=== PATIENT | male | born 1970 | race Caucasian/White ===

== ENCOUNTER → 2020-09-18 08:43 | Outpatient (BNVA) | payer MEDICAID, SELFPAY | PROVIDERS: Visit Provider Internal Medicine Gastroenterology | DX: Z76.89 Persons encountering health services in other specified circumstances (principal) ==

== ENCOUNTER 2020-10-03 07:31 | Outpatient (REF) | payer MEDICAID, SELFPAY ==
--- NOTE | 2020-10-03 07:57 | US_ITS ---
EXAMINATION: US ABDOMEN LIMITED CLINICAL INFORMATION: Cirrhosis of liver. COMPARISON: None. TECHNIQUE: Real-time imaging of the right upper quadrant abdominal viscera. FINDINGS: PANCREAS: The body of the pancreas partially visualized is unremarkable. The head and the tail of the pancreas are not seen well. LIVER: The liver is coarse echogenic with scalloped borders. No focal lesions seen. There is no intrahepatic biliary duct dilatation seen. GALLBLADDER: The gallbladder is contracted with no focal lesion seen. COMMON BILE DUCT: Normal in caliber measuring 0.2 cm in diameter. RIGHT KIDNEY: Normal. No hydronephrosis. No renal calculi or focal parenchymal lesions. The kidney measures 12.7 cm in maximum dimension. FREE FLUID: None. US/US abdomen limited IMPRESSION: Coarse echogenic liver with scalloped margins but no focal lesion or intrahepatic liver ductal dilatation. Contracted gallbladder.
[2020-10-03 08:16] LABS: MANUAL DIFF FLAG SCAN; SCAN SMEAR FLAG 1
[2020-10-03 08:17] LABS: Basophils Percent Auto 0.3 % (0-2); Eosinophils Absolute Auto 0.4 X10*3/uL (0.0-0.4); Eosinophils Percent Auto 6.5 % (0-4); Hematocrit 42.1 % (42-52); Hemoglobin 14.4 g/dl (14.0-18.0); Imm Gran Abs Auto 0.01 X10*3/uL (0.00-0.03); Imm Gran Pct Auto 0.2 % (0.0-0.4); Lymphocytes Percent Auto 34.3 % (20-40); Mean Corpuscular HGB Conc 34.2 g/dl (31.0-36.0); Mean Corpuscular Hemoglobin 30.6 pg (27.0-33.0); Mean Corpuscular Volume 89.6 fL (80-98); Monocytes Absolute Auto 0.4 X10*3/uL (0.1-1.2); Monocytes Percent Auto 6.8 % (2-11); Neutrophils Absolute Auto 3.1 X10*3/uL (2.0-8.3); Neutrophils Percent Auto 51.9 % (45-73); Red Cell Distribution Width 12.9 % (11.0-16.0); White Blood Count 5.9 X10*3/uL (4.8-10.8)
[2020-10-03 08:20] LABS: PLT ABN DIST 1; Platelet Count 57 X10*3/uL (160-400)
[2020-10-03 08:55] LABS: INTERNATIONAL NORM RATIO 1.2 (0.9-1.1); Prothrombin Time 14.4 SEC (10.8-13.0)
[2020-10-03 09:10] LABS: Alanine Aminotransferase 37 U/L (0-40); Albumin Level 3.2 g/dL (3.5-5.0); Alkaline Phosphatase 166 U/L (39-117); Anion Gap 10 (12-20); Aspartate Amino Transferase 48 U/L (5-37); Bilirubin Direct 0.4 mg/dL (0.0-0.5); Bilirubin Total 0.7 mg/dL (0.0-1.0); Blood Urea Nitrogen 11 mg/dL (9-16); Calcium 8.3 mg/dL (8.4-10.2); Carbon Dioxide 28 mmol/L (22-29); Chloride 103 mmol/L (96-108); Estimated Glomerular Filt Rate > 60; Potassium 3.8 mmol/l (3.3-5.1); Sodium 137 mmol/L (135-145); Total Protein 7.1 g/dL (6.5-8.0)
[2020-10-03 09:12] LABS: Glucose Random 421 mg/dL (60-115)
== END 2020-10-03 07:32 | disposition home or self-care (01) ==
LOC: HO.US 07:31
PROVIDERS: Visit Provider Internal Medicine Gastroenterology
DX: K74.60 Unspecified cirrhosis of liver (principal)
CPT/HCPCS: 36415; 76705; 80048; 80076; 85025; 85610

== ENCOUNTER 2021-01-16 13:28 | Outpatient (REF) | payer MEDICAID, SELFPAY ==
--- NOTE | ~2021-01-16 | XR_ITS ---
EXAMINATION: XR CHEST CLINICAL INFORMATION: Cough COMPARISON: Previous chest x-ray most recent September 2019 TECHNIQUE: 2 views of the chest were obtained. FINDINGS: The cardiac and mediastinal contours are normal in the lungs are clear. There is no pleural effusion or pneumothorax. There are mild degenerative changes of the spine. XR/XR chest 2V IMPRESSION: No evidence for acute disease in the chest.
== END 2021-01-16 13:29 | disposition home or self-care (01) ==
LOC: HO.XRAY 13:28
PROVIDERS: PCP Internal Medicine; Visit Provider Internal Medicine
DX: R05 Cough (principal)
CPT/HCPCS: 71046

== ENCOUNTER 2021-03-23 09:22 | Inpatient (IN) | payer MEDICAID, SELFPAY ==
--- NOTE | ~2021-03-23 | US_ITS ---
EXAMINATION: US ABDOMEN COMPLETE CLINICAL INFORMATION: Cirrhosis. Abdominal pain. Elevated liver function tests.. COMPARISON: Previous abdominal ultrasound most recent September [address] January 2019 TECHNIQUE: Real-time imaging of the abdominal viscera. FINDINGS: PANCREAS: Head and body the pancreas are normal. The tail is not well visualized due to bowel gas. ABDOMINAL AORTA: The proximal, mid, and distal segments are normal in caliber. INFERIOR VENA CAVA: Visualized portions are normal. LIVER: The liver is cirrhotic. No focal liver lesion is seen. There is thrombus seen in the main portal vein. There is reversed flow seen in the splenic vein and portal splenic confluence. There is no biliary duct dilatation. GALLBLADDER: The gallbladder is normal in size. There is gallbladder wall thickening and edema. The gallbladder wall measures up to 1.2 cm. This may be related to liver disease. No gallstones are seen. COMMON BILE DUCT: Normal in caliber measuring 0.4 cm in diameter. RIGHT KIDNEY: The right kidney is enlarged and measures 13.4 cm in length. There is question of renal cortical thickening. There is mild fullness of the renal pelvis. No stone or mass is seen. LEFT KIDNEY: The left kidney is enlarged and measures 14.1 cm in length. There is question of renal cortical thickening. There is mild fullness of the renal pelvis. No stone or mass is seen. SPLEEN: The spleen is enlarged. The spleen measures 14.5 cm in maximum dimension. There are varices seen in the splenic hilum. FREE FLUID: There is a small amount of ascites. US/US abdomen complete IMPRESSION: Cirrhotic appearing liver with near occlusive thrombus in the main portal vein and reversed flow in the splenic vein and portal splenic confluence. Splenomegaly. Small amount of ascites. Gallbladder wall thickening and edema. This may be related to liver disease. Enlarged kidneys with question of renal cortical thickening.
--- NOTE | ~2021-03-23 | CT_ITS ---
EXAMINATION: CT ABDOMEN AND PELVIS WITH CONTRAST CLINICAL INFORMATION: Abdominal pain. Cirrhosis. Portal vein thrombus seen on ultrasound. COMPARISON: Previous abdominal ultrasound earlier the same day CT most recent January 2019 TECHNIQUE: Multidetector volumetric images were obtained from the superior aspect of the liver through the pubic symphysis following administration 85 mL of Omnipaque 350 intravenous contrast. Sagittal and coronal reformatted images were obtained on the technologist's workstation. Oral contrast: Yes This CT examination was performed using dose optimization techniques as appropriate, variously including the following: *Automated exposure control *Adjustment of mA and/or kV according to patient size (this includes techniques or standardized protocols for targeted exams where dose is matched to indication/reason for exam; i.e. extremities or head) *Use of iterative reconstruction technique DLP: 582 mGy-cm FINDINGS: LUNG BASES: There is atelectasis at the lung bases. LIVER, GALLBLADDER, AND BILIARY TREE: The liver appears cirrhotic. There is no focal liver lesion. There is no biliary duct dilatation. The main and right left portal veins appear patent by CT. There are multiple varices. There is a small amount of ascites. The gallbladder is normal in size. There is focal gallbladder wall thickening. This may be related to liver disease. PANCREAS: Unremarkable. SPLEEN: The spleen is enlarged. ADRENAL GLANDS: Unremarkable. KIDNEYS AND URETERS: The kidneys are normal in size, shape, and attenuation. No hydronephrosis, hydroureter, or calculi seen. No perinephric stranding. BLADDER: Unremarkable. GASTROINTESTINAL TRACT: There are surgical changes with surgical staple line seen in the distal left or proximal sigmoid colon. There is stool throughout the colon suggestive of severe constipation. Small and large bowel is otherwise unremarkable. The appendix is not seen.. ABDOMINAL WALL: No significant hernia is appreciated. LYMPH NODES: Normal. VASCULAR: There are multiple varices. PELVIC VISCERA: Unremarkable. OSSEOUS STRUCTURES: There are degenerative changes of the spine. CT/CT abdomen pelvis w con IMPRESSION: Cirrhosis, splenomegaly, varices and small amount of ascites. The main and right and left portal veins appear patent CT scan. Stool throughout the colon suggestive of severe constipation. There are postsurgical changes to the distal left or proximal sigmoid colon. Thickened gallbladder wall. This may be related to liver disease.
--- NOTE | ~2021-03-23 | XR_ITS ---
EXAMINATION: XR CHEST CLINICAL INFORMATION: Shortness of breath COMPARISON: Previous chest x-ray December 2020 TECHNIQUE: Frontal view of the chest was obtained. FINDINGS: The cardiac silhouette is upper normal in size. There are prominent central bronchovascular markings. These changes may be related to apical lordotic film technique. The lungs are otherwise clear. There is no pleural effusion or pneumothorax. There are degenerative changes of the spine. XR/XR chest 1V IMPRESSION: Prominent central bronchovascular markings. These changes may be related to a volar apical lordotic film technique. Differential would include bronchitis and mild pulmonary venous redistribution. Clinical correlation recommended.
[2021-03-23 09:26] VITALS: BP 145/68; PULSE 83; RESP 20; TEMP 36.9; O2SAT 96; BMI 29.5
--- NOTE | 2021-03-23 11:05 | ECG_ITS ---
Test Reason : ABD PAIN Blood Pressure : / mmHG Vent. Rate : 080 BPM Atrial Rate : 080 BPM P-R Int : 170 ms QRS Dur : 118 ms QT Int : 416 ms P-R-T Axes : 039 017 053 degrees QTc Int : 479 ms Normal sinus rhythm Possible Left atrial enlargement Incomplete right bundle branch block Borderline ECG When compared with ECG of 06-OCT-2019 09:41, Incomplete right bundle branch block is now Present Referred By: Ashley Lam Electronically Signed By:FRANCI LAUGHLIN MD
[2021-03-23 11:39] LABS: Basophils Percent Auto 0.1 % (0-2); Hemoglobin 10.5 g/dl (14.0-18.0); MANUAL DIFF FLAG SCAN; Mean Corpuscular Hemoglobin 32.1 pg (27.0-33.0); Red Blood Count 3.27 X10*6/uL (4.60-5.80); SCAN SMEAR FLAG 1
[2021-03-23 11:41] LABS: Eosinophils Absolute Auto 0.1 X10*3/uL (0.0-0.4); Eosinophils Percent Auto 1.4 % (0-4); Hematocrit 31.8 % (42-52); Imm Gran Abs Auto 0.27 X10*3/uL (0.00-0.03); Imm Gran Pct Auto 3.8 % (0.0-0.4); Lymphocytes Absolute Auto 0.8 X10*3/uL (1.2-4.9); Lymphocytes Percent Auto 11.9 % (20-40); Mean Corpuscular Volume 97.2 fL (80-98); Monocytes Absolute Auto 0.2 X10*3/uL (0.1-1.2); Monocytes Percent Auto 3.2 % (2-11); Neutrophils Absolute Auto 5.6 X10*3/uL (2.0-8.3); Neutrophils Percent Auto 79.6 % (45-73); White Blood Count 7.1 X10*3/uL (4.8-10.8)
[2021-03-23 11:42] LABS: PLT ABN DIST 1; Platelet Count 97 X10*3/uL (160-400)
--- NOTE | 2021-03-23 11:44 | ED.GENADULT ---
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 He denies history of CHF or being on any diuretics. He denies trauma and states both legs swelled at the same time and have been constant x2 weeks. He went to [facility] ER and they told him to elevate his legs, no improvement with this. He admits to intermittent SOB and chest discomfort. He reports liver pain and LLQ pain that come and go for 2 weeks as well. No nausea or vomiting. No fever, chills, or urinary symptoms. MD complaint: LE swelling, abdominal pain Onset (ago): week(s) (2) Location: chest, abdomen, left, right and lower extremity Radiation: non-radiation Severity: moderate Severity scale (1-10): 7 Quality: aching Pain Consistency: intermittent Relieving factors: none Associated symptoms: chest pain and shortness of breath Treatments prior to arrival: none Related Data Home Medications Medication Instructions Recorded Confirmed blood sugar diagnostic #10 ea 06/24/20 06/24/20 blood-glucose meter #1 ea 06/24/20 06/24/20 insulin glargine 100 unit/mL (3 12 unit SUBCUT QPM 06/24/20 03/23/21 mL) subcutaneous pen insulin lispro 100 unit/mL See Protocol SUBCUT TID ml 06/24/20 03/23/21 subcutaneous pen lancets 28 gauge #100 ea 06/24/20 06/24/20 metformin 500 mg tablet 500 mg PO BID 06/24/20 03/23/21 aripiprazole 1 tab PO DAILY 03/23/21 03/23/21 atorvastatin 1 tab PO BEDTIME 03/23/21 03/23/21 cephalexin 1 cap PO TID 03/23/21 03/23/21 doxepin 2 cap PO BEDTIME 03/23/21 03/23/21 propranolol 1 cap PO DAILY 03/23/21 03/23/21 Previous Rx's Medication Instructions Recorded pantoprazole 40 mg tablet,delayed 40 mg PO DAILY #60 tab 09/18/20 release Allergies Allergy/AdvReac Type Severity Reaction Status Date / Time No Known Allergies Allergy Unverified 06/08/20 19:10 [No Known Allergies*] Review of Systems Review of Systems: Constitutional: No Fever, No Chills ENT/Mouth: No sore throat, No Rhinorrhea, No Swallowing Difficulty Eyes: No Eye Pain, No Swelling, No Redness Cardiovascular: + Chest Pain, + SOB, No Orthopnea, + Edema Respiratory: No Cough, No Sputum, No Wheezing, No dyspnea Gastrointestinal: No Nausea, No Vomiting, + Diarrhea, + abdominal Pain, No Hematochezia, No Melena Genitourinary: No Dysuria, No Urinary Frequency, No Hematuria Musculoskeletal: No joint pain, No Myalgias Skin: No Skin Lesions, No rash Neuro: No Weakness, No Numbness, No Dizziness, No Headache Psych: No Anxiety/Panic, No Depression Heme/Lymph: No Bruising, No Lymphadenopathy Endocrine: No Polyuria, No Polydipsia [facility] Past Medical History Attestation statement: The following information was validated with the patient. Medical History Diabetes High cholesterol HTN (hypertension) Surgical History (Updated 09/18/20 @ 08:47 by Henny Cardoza CMA) History of colonoscopy History of partial colectomy Hx of endoscopy Family History Family History (Updated 09/18/20 @ 08:47 by Henny Cardoza CMA) Mother Heart disease Diabetes Father No problems noted. Social History Social History (Updated 09/18/20 @ 08:48 by Henny Cardoza CMA) Alcohol intake: never Substance Use Type: Crack/Cocaine and Marijuana Advance Directives: Yes Advance Directives Information Provided: Yes Advance Directives on File: No Physical Exam Vital Signs: Vital Signs: Last Vital Signs Temp 98.4 F 03/23/21 09:26 Pulse 90 03/23/21 13:46 Resp 18 03/23/21 13:46 BP 145/68 H 03/23/21 09:26 Pulse Ox 96 03/23/21 09:26 Body Mass Index 29.5 Appearance: Alert. Oriented X3. No acute distress. Eyes: Pupils equal, round and reactive to light. ENT: Pharynx normal. Neck: Normal inspection. Neck supple. CVS: Normal heart rate and rhythm. Pulses normal. Respiratory: No respiratory distress. Breath sounds normal. Abdomen: Soft with RUQ and LLQ tenderness, + guarding. +BS x4 Skin: Skin warm and dry. Normal skin color. Normal skin turgor. No rashes. Extremities: 2+ lower extremity edema. Neuro: Oriented X 3. No motor deficit. No sensory deficit. Course Course Course Narrative: 50 y/o male with HTN, HLD, DM and liver cirrhosis (?ROSA) presenting with multiple medical complaints including new LE edema, abdominal pain, SOB and chest pains. Will get EKG, CXR, gull metabolic workup. Reevaluation(s) Reevaluation #1: Albumin is 1.5. BNP 350. New anemia with H/H 10.5/31.8 from 14.4/42.1. six months ago. His thrombocytopenia is improved to 97K from 57K. LFTs trended up from baseline. Abd U/S ordered for further evaluation of increase in LFTs and RUQ pain. Ordered for IV lasix, albumin for fluid overload as well as SC insulin for glucose 380. Reevaluation #2: RUQ U/S showing thrombosis with near occlusion of main portal vein. Case d/w Dr Lopez from GI - recommending CT scan to r/o liver mass as well as AFP. Recommending anticoagluation for PVT and close monitoring of H/H given his new anemia. No signs/symptoms of GI bleeding. Reevaluation #3: CT scan : Cirrhosis, splenomegaly, varices and small amount of ascites. The main and right and left portal veins appear patent CT scan. Stool throughout the colon suggestive of severe constipation. There are postsurgical changes to the distal left or proximal sigmoid colon. Thickened gallbladder wall. This may be related to liver disease. U/S w/ doppler more reliable for PVT. Will plan to start heparin gtt and monitor CBC closely for worsening anemia and thrombocytopenia. Stool occult blood is negative. Spoke with Dr. Traylor for admission. Consultations Consultation #1: GI - Dr. Lopez Medical Decision Making Lab Data Result diagrams: 03/23/21 11:24 03/23/21 11:24 Labs: Lab Results 03/23/21 03/23/21 03/23/21 Range/Units 11:24 11:24 11:24 WBC 7.1 (4.8-10.8) X10*3/uL RBC 3.27 L D (4.60-5.80) X10*6/uL Hgb 10.5 L D (14.0-18.0) g/dl Hct 31.8 L D (42-52) % MCV 97.2 (80-98) fL MCH 32.1 (27.0-33.0) pg MCHC 33.0 (31.0-36.0) g/dl RDW 17.0 H (11.0-16.0) % Plt Count 97 L D (160-400) X10*3/uL MPV 13.0 H (9.4-12.4) fL Immature Gran % (Auto) 3.8 H (0.0-0.4) % Neut % (Auto) 79.6 H (45-73) % Lymph % (Auto) 11.9 L (20-40) % [place] % (Auto) 3.2 (2-11) % Eos % (Auto) 1.4 (0-4) % Baso % (Auto) 0.1 (0-2) % Lymph # (Auto) 0.8 L (1.2-4.9) X10*3/uL [place] # (Auto) 0.2 (0.1-1.2) X10*3/uL Eos # (Auto) 0.1 (0.0-0.4) X10*3/uL Baso # (Auto) 0.0 (0.0-0.2) X10*3/uL Abs Immat Gran (auto) 0.27 H (0.00-0.03) X10*3/uL Absolute Neuts (auto) 5.6 (2.0-8.3) X10*3/uL Absolute Nucleated RBC 0.000 (0.0-0.012) X10*3/uL Nucleated RBC % (auto) 0.0 (0.0-0.2) /100WBC Smear Tech's Comments Not Reportable PT (9.9-13.0) SEC INR (0.9-1.1) APTT (24.1-38.0) SEC Hold Blue Top SEE NOTE Sodium 133 L (135-145) mmol/L Potassium 4.4 (3.3-5.1) mmol/L Chloride 103 (96-108) mmol/L Carbon Dioxide 29 (22-29) mmol/L Anion Gap 5 L (12-20) BUN 8 L (9-16) mg/dL Creatinine 0.82 (0.5-1.4) mg/dL Estim Creat Clear Calc 119.9 Estimated GFR > 60 POC Glucose (60-115) mg/dL Random Glucose 386 H* (60-115) mg/dL Lactic Acid (0.5-2.0) mmol/L Calcium 7.4 L D (8.4-10.2) mg/dL Magnesium 1.6 (1.6-2.6) mg/dL Total Bilirubin 1.3 H (0.0-1.0) mg/dL Direct Bilirubin 0.9 H (0.0-0.5) mg/dL AST 59 H (5-37) U/L ALT 32 (0-40) U/L Alkaline Phosphatase 310 H D (39-117) U/L Troponin I High Sens (<3.5-35.0) ng/L B-Natriuretic Peptide (<100) pg/mL Total Protein 8.1 H (6.5-8.0) g/dL Albumin 1.5 L D (3.5-5.0) g/dL Lipase 84 H (8-78) U/L Urine Color Urine Appearance Urine pH (5.0-8.0) Ur Specific [place] (1.005-1.025) Urine Protein (NEG-TRACE) MG/DL Urine Glucose (UA) (NEG) MG/DL Urine Ketones (NEG) MG/DL Urine Blood (NEG) Urine Nitrite (NEG) Ur Leukocyte Esterase (NEG) Urine RBC (0) /HPF Urine WBC (0-4) /HPF Ur Squamous Epith Cells /LPF Urine Bacteria /LPF Urine Mucus /LPF Stool Occult Blood (NEGATIVE) COVID-19 (NEY) (Negative) COVID-19 Clin Com 03/23/21 03/23/21 03/23/21 Range/Units 11:24 12:39 14:57 WBC (4.8-10.8) X10*3/uL RBC (4.60-5.80) X10*6/uL Hgb (14.0-18.0) g/dl Hct (42-52) % MCV (80-98) fL MCH (27.0-33.0) pg MCHC (31.0-36.0) g/dl RDW (11.0-16.0) % Plt Count (160-400) X10*3/uL MPV (9.4-12.4) fL Immature Gran % (Auto) (0.0-0.4) % Neut % (Auto) (45-73) % Lymph % (Auto) (20-40) % [place] % (Auto) (2-11) % Eos % (Auto) (0-4) % Baso % (Auto) (0-2) % Lymph # (Auto) (1.2-4.9) X10*3/uL [place] # (Auto) (0.1-1.2) X10*3/uL Eos # (Auto) (0.0-0.4) X10*3/uL Baso # (Auto) (0.0-0.2) X10*3/uL Abs Immat Gran (auto) (0.00-0.03) X10*3/uL Absolute Neuts (auto) (2.0-8.3) X10*3/uL Absolute Nucleated RBC (0.0-0.012) X10*3/uL Nucleated RBC % (auto) (0.0-0.2) /100WBC Smear Tech's Comments PT (9.9-13.0) SEC INR (0.9-1.1) APTT (24.1-38.0) SEC Hold Blue Top Sodium (135-145) mmol/L Potassium (3.3-5.1) mmol/L Chloride (96-108) mmol/L Carbon Dioxide (22-29) mmol/L Anion Gap (12-20) BUN (9-16) mg/dL Creatinine (0.5-1.4) mg/dL Estim Creat Clear Calc Estimated GFR POC Glucose 171 H (60-115) mg/dL Random Glucose (60-115) mg/dL Lactic Acid (0.5-2.0) mmol/L Calcium (8.4-10.2) mg/dL Magnesium (1.6-2.6) mg/dL Total Bilirubin (0.0-1.0) mg/dL Direct Bilirubin (0.0-0.5) mg/dL AST (5-37) U/L ALT (0-40) U/L Alkaline Phosphatase (39-117) U/L Troponin I High Sens < 3.5 (<3.5-35.0) ng/L B-Natriuretic Peptide 356 H (<100) pg/mL Total Protein (6.5-8.0) g/dL Albumin (3.5-5.0) g/dL Lipase (8-78) U/L Urine Color YELLOW Urine Appearance CLEAR Urine pH 6.5 (5.0-8.0) Ur Specific [place] 1.025 (1.005-1.025) Urine Protein TRACE (NEG-TRACE) MG/DL Urine Glucose (UA) >=1000 H (NEG) MG/DL Urine Ketones NEG (NEG) MG/DL Urine Blood NEG (NEG) Urine Nitrite NEG (NEG) Ur Leukocyte Esterase NEG (NEG) Urine RBC 0-2 (0) /HPF Urine WBC 0 (0-4) /HPF Ur Squamous Epith Cells 1+ /LPF Urine Bacteria NONE /LPF Urine Mucus 1+ /LPF Stool Occult Blood (NEGATIVE) COVID-19 (NEY) (Negative) COVID-19 Clin Com 03/23/21 03/23/21 03/23/21 Range/Units 15:54 15:54 15:54 WBC (4.8-10.8) X10*3/uL RBC (4.60-5.80) X10*6/uL Hgb (14.0-18.0) g/dl Hct (42-52) % MCV (80-98) fL MCH (27.0-33.0) pg MCHC (31.0-36.0) g/dl RDW (11.0-16.0) % Plt Count (160-400) X10*3/uL MPV (9.4-12.4) fL Immature Gran % (Auto) (0.0-0.4) % Neut % (Auto) (45-73) % Lymph % (Auto) (20-40) % [place] % (Auto) (2-11) % Eos % (Auto) (0-4) % Baso % (Auto) (0-2) % Lymph # (Auto) (1.2-4.9) X10*3/uL [place] # (Auto) (0.1-1.2) X10*3/uL Eos # (Auto) (0.0-0.4) X10*3/uL Baso # (Auto) (0.0-0.2) X10*3/uL Abs Immat Gran (auto) (0.00-0.03) X10*3/uL Absolute Neuts (auto) (2.0-8.3) X10*3/uL Absolute Nucleated RBC (0.0-0.012) X10*3/uL Nucleated RBC % (auto) (0.0-0.2) /100WBC Smear Tech's Comments PT 17.0 H (9.9-13.0) SEC INR 1.5 H (0.9-1.1) APTT 36.7 (24.1-38.0) SEC Hold Blue Top Sodium (135-145) mmol/L Potassium (3.3-5.1) mmol/L Chloride (96-108) mmol/L Carbon Dioxide (22-29) mmol/L Anion Gap (12-20) BUN (9-16) mg/dL Creatinine (0.5-1.4) mg/dL Estim Creat Clear Calc Estimated GFR POC Glucose (60-115) mg/dL Random Glucose (60-115) mg/dL Lactic Acid 1.1 (0.5-2.0) mmol/L Calcium (8.4-10.2) mg/dL Magnesium (1.6-2.6) mg/dL Total Bilirubin (0.0-1.0) mg/dL Direct Bilirubin (0.0-0.5) mg/dL AST (5-37) U/L ALT (0-40) U/L Alkaline Phosphatase (39-117) U/L Troponin I High Sens (<3.5-35.0) ng/L B-Natriuretic Peptide (<100) pg/mL Total Protein (6.5-8.0) g/dL Albumin (3.5-5.0) g/dL Lipase (8-78) U/L Urine Color Urine Appearance Urine pH (5.0-8.0) Ur Specific [place] (1.005-1.025) Urine Protein (NEG-TRACE) MG/DL Urine Glucose (UA) (NEG) MG/DL Urine Ketones (NEG) MG/DL Urine Blood (NEG) Urine Nitrite (NEG) Ur Leukocyte Esterase (NEG) Urine RBC (0) /HPF Urine WBC (0-4) /HPF Ur Squamous Epith Cells /LPF Urine Bacteria /LPF Urine Mucus /LPF Stool Occult Blood (NEGATIVE) COVID-19 (NEY) Negative (Negative) COVID-19 Clin Com See Note 03/23/21 03/23/21 Range/Units 15:55 16:43 WBC (4.8-10.8) X10*3/uL RBC (4.60-5.80) X10*6/uL Hgb (14.0-18.0) g/dl Hct (42-52) % MCV (80-98) fL MCH (27.0-33.0) pg MCHC (31.0-36.0) g/dl RDW (11.0-16.0) % Plt Count (160-400) X10*3/uL MPV (9.4-12.4) fL Immature Gran % (Auto) (0.0-0.4) % Neut % (Auto) (45-73) % Lymph % (Auto) (20-40) % [place] % (Auto) (2-11) % Eos % (Auto) (0-4) % Baso % (Auto) (0-2) % Lymph # (Auto) (1.2-4.9) X10*3/uL [place] # (Auto) (0.1-1.2) X10*3/uL Eos # (Auto) (0.0-0.4) X10*3/uL Baso # (Auto) (0.0-0.2) X10*3/uL Abs Immat Gran (auto) (0.00-0.03) X10*3/uL Absolute Neuts (auto) (2.0-8.3) X10*3/uL Absolute Nucleated RBC (0.0-0.012) X10*3/uL Nucleated RBC % (auto) (0.0-0.2) /100WBC Smear Tech's Comments PT (9.9-13.0) SEC INR (0.9-1.1) APTT (24.1-38.0) SEC Hold Blue Top Sodium (135-145) mmol/L Potassium (3.3-5.1) mmol/L Chloride (96-108) mmol/L Carbon Dioxide (22-29) mmol/L Anion Gap (12-20) BUN (9-16) mg/dL Creatinine (0.5-1.4) mg/dL Estim Creat Clear Calc Estimated GFR POC Glucose 120 H (60-115) mg/dL Random Glucose (60-115) mg/dL Lactic Acid (0.5-2.0) mmol/L Calcium (8.4-10.2) mg/dL Magnesium (1.6-2.6) mg/dL Total Bilirubin (0.0-1.0) mg/dL Direct Bilirubin (0.0-0.5) mg/dL AST (5-37) U/L ALT (0-40) U/L Alkaline Phosphatase (39-117) U/L Troponin I High Sens (<3.5-35.0) ng/L B-Natriuretic Peptide (<100) pg/mL Total Protein (6.5-8.0) g/dL Albumin (3.5-5.0) g/dL Lipase (8-78) U/L Urine Color Urine Appearance Urine pH (5.0-8.0) Ur Specific [place] (1.005-1.025) Urine Protein (NEG-TRACE) MG/DL Urine Glucose (UA) (NEG) MG/DL Urine Ketones (NEG) MG/DL Urine Blood (NEG) Urine Nitrite (NEG) Ur Leukocyte Esterase (NEG) Urine RBC (0) /HPF Urine WBC (0-4) /HPF Ur Squamous Epith Cells /LPF Urine Bacteria /LPF Urine Mucus /LPF Stool Occult Blood NEGATIVE (NEGATIVE) COVID-19 (NEY) (Negative) COVID-19 Clin Com ECG Data Attestation: I personally reviewed and interpreted this ECG as follows: Interpretation: normal sinus rhythm, HR 80 bpm, normal DE interval, increased QRS 118 ms, increased QTc 479 ms, incomplete RBBB Critical Care Time Critical Care Time Critical Care Time: Yes Total Critical Care Time: 42 Attestation: I have personally provided critical care time exclusive of time spent on separately billable procedures. Time includes review of lab data, radiology results, discussion with consultants, and monitoring for potential decompensation. Intervention performed as documented. Discharge Plan Discharge Clinical Impression: Portal vein thrombosis, Hypoalbuminemia Anemia Qualifiers: Anemia type: unspecified type Qualified Code(s): D64.9 - Anemia, unspecified Patient Disposition: Admitted As Inpatient
[2021-03-23 12:05] LABS: Alanine Aminotransferase 32 U/L (0-40); Albumin Level 1.5 g/dL (3.5-5.0); Alkaline Phosphatase 310 U/L (39-117); Anion Gap 5 (12-20); Aspartate Amino Transferase 59 U/L (5-37); B Type Natriuretic Peptide 356 pg/mL (<100); Bilirubin Direct 0.9 mg/dL (0.0-0.5); Bilirubin Total 1.3 mg/dL (0.0-1.0); Blood Urea Nitrogen 8 mg/dL (9-16); Calcium 7.4 mg/dL (8.4-10.2); Carbon Dioxide 29 mmol/L (22-29); Chloride 103 mmol/L (96-108); Creatinine Clr Calc Pharmacy 119.9; Estimated Glomerular Filt Rate > 60; Glucose Random 386 mg/dL (60-115); Magnesium 1.6 mg/dL (1.6-2.6); Potassium 4.4 mmol/L (3.3-5.1); Sodium 133 mmol/L (135-145); Total Protein 8.1 g/dL (6.5-8.0); Troponin-I High Sensitivity < 3.5 ng/L (<3.5-35.0)
[2021-03-23 12:18] LABS: Lipase 84 U/L (8-78)
[2021-03-23] MEDS: Furosemide 20 MG/2 ML VIAL IVPUSH (12:34)
[2021-03-23] MEDS: Albumin Human 25 % 100 ML IV (12:34)
[2021-03-23] MEDS: Insulin Lispro 100 UNIT/ML 3 ML VIAL 8 UNIT SUBCUT (12:34)
[2021-03-23 12:50] LABS: Glucose Urine UA >=1000 MG/DL (NEG); Leukocyte Esterase Urine NEG (NEG); Nitrite Urine NEG (NEG); PH 6.5 (5.0-8.0); Specific Gravity - Urine 1.025 (1.005-1.025); Urine Blood NEG (NEG); Urine Ketones NEG (NEG); Urine Protein TRACE MG/DL (NEG-TRACE)
[2021-03-23 12:52] LABS: Appearance Urine CLEAR; Color Urine YELLOW
[2021-03-23 13:17] LABS: Mucus Urine 1+ /LPF; RBC Urine 0-2 /HPF (0); Squamous Epithelial Cell Urine 1+ /LPF; WBC Urine 0 /HPF (0-4)
[2021-03-23 13:46] VITALS: PULSE 90; RESP 18
[2021-03-23 15:02] LABS: Glucose, Whole Blood 171 mg/dL (60-115)
--- NOTE | 2021-03-23 15:59 | PHA.MEDREC ---
Pharmacy Consult ? Medication Reconciliation Pharmacy has completed the medication reconciliation.
[2021-03-23 16:08] LABS: OBS Int Ctl Valid YES; OBS1 NEGATIVE (NEGATIVE)
[2021-03-23 16:16] LABS: INTERNATIONAL NORM RATIO 1.5 (0.9-1.1)
[2021-03-23 16:18] LABS: Partial Thromboplastin Time 36.7 SEC (24.1-38.0)
[2021-03-23 16:21] LABS: COVID-19 Test Negative (Negative); IDNOW Serial# 9DD0AD1C
[2021-03-23] MEDS: iohexoL 350 MG/ML 100 ML INFUS..BTL IV (16:25)
[2021-03-23 16:28] LABS: Lactic Acid 1.1 mmol/L (0.5-2.0)
[2021-03-23 16:48] LABS: Glucose, Whole Blood 120 mg/dL (60-115)
[2021-03-23] MEDS: Heparin Sodium,Porcine/1/2NS 25,000 UNIT/250 ML IV.SOLN 12.7 UNIT IVCONT (19:02)
[2021-03-23 19:04] LABS: Iron 52 mcg/dL (45-160); Percent Iron Saturation 37 % (15-50); Total Iron Binding Capacity 139 mcg/dL (228-428); Unsaturated Iron Binding 87 ug/dL
[2021-03-23 19:24] LABS: Ferritin 676 ng/mL (20-250)
--- NOTE | 2021-03-23 19:40 | PC.NURSE ---
PT RESTING IN STRETCHER WITH HEPARIN DRIP UP AND RUNNING ON PUMP AT 14/UNITS/KG/HR. PT ON MONITOR WITH HR 92, VS OBTAINED. PT A&OX3, SKIN W/D. PT IN NAD AND DENIES ANY COMPLAINTS AT THIS TIME. ATTEMPTING TO CALL REPORT AT THIS TIME.
[2021-03-23 19:42] VITALS: BP 109/55; PULSE 92; RESP 28; O2SAT 95
--- NOTE | 2021-03-23 19:51 | PC.NURSE ---
UNABLE TO GIVE REPORT.
[2021-03-23 20:00] VITALS: BP 138/76; PULSE 92; RESP 18; TEMP 37.2; O2SAT 96
--- NOTE | 2021-03-23 20:06 | HP_ITS ---
DATE OF SERVICE: 03/23/2021 CHIEF COMPLAINT: Abdominal pain. 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 He denies any history of nausea, vomiting, hematemesis, melena. The patient was seen at [facility] and he was told to keep his legs elevated, but since there was no improvement, he came to the emergency room for further treatment and evaluation. He denies associated fever, chills, rigors. In the emergency room, workup showed hematocrit of 31.8, that has significantly dropped down from hematocrit of 42.1 in September of 2020. His platelet counts are stable at 97,000. Sodium is 133, random blood sugar is 386. His iron studies are not consistent with iron-deficiency anemia. Total bilirubin is 1.3, alkaline phosphatase is 310. Albumin is low at 1.5 with a lipase of 84. Imaging studies showed cirrhosis, splenomegaly, varices and small amount of ascites. The main right and left portal vein appeared patent. There was stool throughout in the colon suggestive of severe constipation, abdominal ultrasound was obtained that showed the patient has cirrhotic appearing liver with near occlusive thrombus in the main portal vein and reverse flow in the splenic and portal splenic confluence. The patient was also noted to have small amount of ascites and splenomegaly. There was gallbladder wall thickening and edema noted likely related to liver disease. Case was discussed with bilingual branch manager, Dr. Lopez and he recommended the patient to be admitted and placed on IV heparin due to portal vein thrombosis, likely cause of lower extremity edema and abdominal pain. PAST MEDICAL HISTORY: Significant for: 1. Cirrhosis of liver due to ROSA. 2. History of diabetes mellitus, on insulin. 3. Hypercholesterolemia. 4. History of hypertension. PAST SURGICAL HISTORY: Status post colonoscopy, status post partial colectomy. FAMILY HISTORY: Mother has heart disease and diabetes. Father is . SOCIAL HISTORY: The patient is homeless, previously used to [facility] [place]. Recently moved to [facility]. He stopped drinking since age 19. He used to drink a rum, now occasionally drinks. He uses crack cocaine. Last use was 1 month ago. He denies other illicit drug use. He has no family in the area. He ambulates without assistive device. ALLERGIES: HE HAS NO KNOWN DRUG ALLERGIES. MEDICATIONS: At home are Abilify 1 tablet daily, Lipitor 1 tablet at bedtime, doxepin 2 capsules at bedtime, he is on Lantus insulin 12 units at bedtime, metformin 500 b.i.d., Protonix 40 mg daily, propranolol 1 capsule p.o. daily. REVIEW OF SYSTEMS: TANKERMAN: He denies any headache, lightheadedness, or dizziness. CVS: No chest pain or palpitation. RESPIRATORY: No cough or sputum production. GASTROINTESTINAL: As above. MUSCULOSKELETAL: He denies any muscular pain. Rest of all other systems are reviewed and negative. PHYSICAL EXAMINATION: GENERAL: The patient is resting comfortably, does not appear to be in acute distress. HEENT: Pupils are equal, round, and reactive to light and accommodation. Anicteric sclerae. NECK: Supple. No JVD. LUNGS: Clear to auscultation bilaterally. HEART: Regular rate and rhythm with no murmur, regurg, or gallop. ABDOMEN: Soft, nontender. Bowel sounds are audible. There is a midline scar from prior colectomy. Liver is not palpable. EXTREMITIES: He has bilateral mild pitting edema to lower extremities. NEURO: Nonfocal. PSYCHIATRIC: Appropriate affect. LABORATORY DATA: As mentioned above. 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 1. Portal vein thrombosis. The patient will be admitted to intermediate care unit and will be placed on IV heparin. The patient with elevated INR and low platelet count, is at high risk of bleeding, therefore will be monitored closely. We will check CBC and PTT closely. We will consult GI for further evaluation and treatment. Currently, the patient has no hematemesis or melena. 2. Diabetes mellitus. The patient will be placed on diabetic diet. Continue insulin sliding scale and home dose of Lantus. 3. Cirrhosis of liver with ascites, hypoalbuminemia, elevated INR. The patient will be placed on propranolol for prevention of variceal bleed. Continue PPI, high-protein diet. Follow LFTs, CBC, and albumin closely. We will place the patient on diuretics. 4. Hyperlipidemia. Continue statins. 5. Deep venous thrombosis prophylaxis, on heparin. 6. Code status, full code. MD ROMY Quevedo/RICHIE / [id number]
--- NOTE | 2021-03-23 20:07 | PC.NURSE ---
unable to give report to [facility] [place].
--- NOTE | 2021-03-23 20:37 | PC.NURSE ---
[facility] UNABLE TO TAKE REPORT WILL RETURN CALL.
--- NOTE | 2021-03-23 20:54 | PC.NURSE ---
REPORT TO PARVEEN THOMAS. PT TO FLOOR IN NAD WITH HEPARIN DRIP RUNNING, SITE INTACT.
[2021-03-23 21:29] LABS: Glucose, Whole Blood 289 mg/dL (60-115)
[2021-03-23 21:55] LABS: Hematocrit 29.8 % (42-52); Hemoglobin 10.1 g/dl (14.0-18.0); Mean Corpuscular HGB Conc 33.9 g/dl (31.0-36.0); Mean Corpuscular Volume 94.3 fL (80-98); Mean Platelet Volume 13.4 fL (9.4-12.4); Red Blood Count 3.16 X10*6/uL (4.60-5.80); Red Cell Distribution Width 16.9 % (11.0-16.0); White Blood Count 8.3 X10*3/uL (4.8-10.8)
[2021-03-23 21:56] LABS: Platelet Count 92 X10*3/uL (160-400)
[2021-03-23] MEDS: Insulin Lispro 100 UNIT/ML 3 ML VIAL SUBCUT (21:57)
[2021-03-23] MEDS: Atorvastatin Calcium 40 MG TABLET PO (21:57)
[2021-03-23] MEDS: Doxepin HCl 25 MG CAPSULE 200 MG PO (21:58)
[2021-03-23 21:59] VITALS: BMI 28.0
[2021-03-23 22:00] LABS: INTERNATIONAL NORM RATIO 1.5 (0.9-1.1); Prothrombin Time 17.2 SEC (9.9-13.0)
[2021-03-23 22:02] LABS: PTT Heparin Drip 56.9 SEC (53-77.9)
[2021-03-23] MEDS: Acetaminophen 325 MG TABLET 650 MG PO (22:10)
[2021-03-23 23:06] VITALS: BP 136/79; PULSE 93; RESP 18; TEMP 36.2; O2SAT 97
[2021-03-23] MEDS: 0.9 % Sodium Chloride Flush 3 ML SYRINGE IVFLUSH (23:50)
[2021-03-24 01:18] LABS: PTT Heparin Drip 73.4 SEC (53-77.9)
[2021-03-24 03:29] VITALS: BP 116/60; PULSE 86; RESP 18; TEMP 36.9; O2SAT 94
[2021-03-24] MEDS: Omeprazole 20 MG CAPSULE.DR PO (05:38)
--- NOTE | 2021-03-24 05:42 | PC.NURSE ---
03/23/212034 called for report, placed on prolonged hold, will attempt again for report
[2021-03-24 06:49] VITALS: BP 136/77; PULSE 79; RESP 20; TEMP 36.6; O2SAT 97
[2021-03-24 07:13] LABS: Glucose, Whole Blood 217 mg/dL (60-115)
[2021-03-24 07:21] LABS: Hematocrit 29.8 % (42-52); Mean Corpuscular HGB Conc 33.6 g/dl (31.0-36.0); Mean Corpuscular Hemoglobin 32.2 pg (27.0-33.0); Mean Corpuscular Volume 95.8 fL (80-98); Mean Platelet Volume 12.6 fL (9.4-12.4); Red Blood Count 3.11 X10*6/uL (4.60-5.80); Red Cell Distribution Width 17.2 % (11.0-16.0); White Blood Count 7.7 X10*3/uL (4.8-10.8)
[2021-03-24 07:24] LABS: Platelet Count 87 X10*3/uL (160-400)
[2021-03-24 07:27] LABS: INTERNATIONAL NORM RATIO 1.5 (0.9-1.1); Prothrombin Time 17.5 SEC (9.9-13.0)
[2021-03-24 07:29] LABS: PTT Heparin Drip 75.2 SEC (53-77.9)
[2021-03-24 07:56] VITALS: BP 136/77; PULSE 79
[2021-03-24] MEDS: ARIPiprazole 10 MG TABLET PO (07:56)
[2021-03-24] MEDS: Propranolol HCL LA 60 MG CAP.SA.24H PO (07:56)
[2021-03-24] MEDS: Insulin Lispro 100 UNIT/ML 3 ML VIAL SUBCUT (07:56)
[2021-03-24] MEDS: 0.9 % Sodium Chloride Flush 3 ML SYRINGE IVFLUSH (07:57)
[2021-03-24 07:58] LABS: Alanine Aminotransferase 27 U/L (0-40); Albumin Level 1.6 g/dL (3.5-5.0); Alkaline Phosphatase 267 U/L (39-117); Anion Gap 9 (12-20); Aspartate Amino Transferase 46 U/L (5-37); Bilirubin Direct 1.1 mg/dL (0.0-0.5); Bilirubin Total 1.9 mg/dL (0.0-1.0); Blood Urea Nitrogen 9 mg/dL (9-16); Calcium 7.6 mg/dL (8.4-10.2); Carbon Dioxide 25 mmol/L (22-29); Chloride 104 mmol/L (96-108); Creatinine Clr Calc Pharmacy 143.3; Estimated Glomerular Filt Rate > 60; Glucose Random 228 mg/dL (60-115); Sodium 134 mmol/L (135-145); Total Protein 7.9 g/dL (6.5-8.0)
--- NOTE | 2021-03-24 09:55 | P.DS_ITS ---
DS: Providers Provider Date of Service: 03/24/21 <ZACH Thrasher - Last Filed: 03/24/21 10:04> Date of admission: 03/23/21 17:53 <ZACH Thrasher - Last Filed: 03/24/21 10:04> Primary care physician: Enrique Rasmussen MD <ZACH Thrasher - Last Filed: 03/24/21 10:04> Consults: 03/23/21 16:12 Consult to Gastroenterology Stat Consulting Provider: Ariella Lopez Reason for consultation: cirrhosis, new PVT, RUQ Pain Has provider been notified: Yes 03/23/21 19:18 Consult to Gastroenterology Routine Consulting Provider: Ariella Lopez Reason for consultation: portal vein thrombosis Has provider been notified: No <ZACH Thrasher - Last Filed: 03/24/21 10:04> DS: Diagnosis Discharge Diagnosis (1) Anemia: Status: Acute <ZACH Thrasher - Last Filed: 03/24/21 10:04> (2) Cirrhosis: Status: Acute <ZACH Thrasher - Last Filed: 03/24/21 10:04> (3) Leg edema: Status: Acute <ZACH Thrasher - Last Filed: 03/24/21 10:04> (4) Hypoalbuminemia: Status: Acute <ZACH Thrasher - Last Filed: 03/24/21 10:04> DS: Medications Discharge Medications Home Medications: Home Medications Medication Instructions Recorded Confirmed blood sugar diagnostic #10 ea 06/24/20 06/24/20 blood-glucose meter #1 ea 06/24/20 06/24/20 insulin glargine 100 unit/mL (3 12 unit SUBCUT QPM 06/24/20 03/23/21 mL) subcutaneous pen insulin lispro 100 unit/mL See Protocol SUBCUT TID ml 06/24/20 03/23/21 subcutaneous pen lancets 28 gauge #100 ea 06/24/20 06/24/20 metformin 500 mg tablet 500 mg PO BID 06/24/20 03/23/21 aripiprazole 1 tab PO DAILY 03/23/21 03/23/21 atorvastatin 1 tab PO BEDTIME 03/23/21 03/23/21 doxepin 2 cap PO BEDTIME 03/23/21 03/23/21 propranolol 1 cap PO DAILY 03/23/21 03/23/21 Previous Rx's Medication Instructions Recorded pantoprazole 40 mg tablet,delayed 40 mg PO DAILY #60 tab 09/18/20 release furosemide [Lasix] 20 mg PO DAILY #30 tab 03/24/21 lactulose 10 g PO DAILY 30 Days #450 ml 03/24/21 <ZACH Thrasher - Last Filed: 03/24/21 10:04> DS: Summary Hospital Course Hospital Course: From H&P on day of admission This is a 50-year-old gentleman with past medical history significant for 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 He denies any history of nausea, vomiting, hematemesis, melena. The patient was seen at [facility] and he was told to keep his legs elevated, but since there was no improvement, he came to the emergency room for further treatment and evaluation. He denies associated fever, chills, rigors. In the emergency room, workup showed hematocrit of 31.8, that has significantly dropped down from hematocrit of 42.1 in September of 2020. His platelet counts are stable at 97,000. Sodium is 133, random blood sugar is 386. His iron studies are not consistent with iron-deficiency anemia. Total bilirubin is 1.3, alkaline phosphatase is 310. Albumin is low at 1.5 with a lipase of 84. Imaging studies showed cirrhosis, splenomegaly, varices and small amount of ascites. The main right and left portal vein appeared patent. There was stool throughout in the colon suggestive of severe constipation, abdominal ultrasound was obtained that showed the patient has cirrhotic appearing liver with near occlusive thrombus in the main portal vein and reverse flow in the splenic and portal splenic confluence. The patient was also noted to have small amount of ascites and splenomegaly. There was gallbladder wall thickening and edema noted likely related to liver disease. Case was discussed with pharmacy intake technician, Dr. Lopez and he recommended the patient to be admitted and placed on IV heparin due to portal vein thrombosis, likely cause of lower extremity edema and abdominal pain. Possible portal vein thrombosis. All nearly occlusive portal vein thrombosis was seen on ultrasound. He was started on heparin drip. Portal vein thrombosis was not seen on CT scan. After discussion with GI the decision was made to discontinue anticoagulation especially given high risk for bleeding with history of esophageal varices, thrombocytopenia and elevated INR. GI recommended discharge with outpatient follow-up and repeating imaging in the near future. Patient will have close GI follow-up. leg edema. related to liver cirrhosis, hypoalbuminemia. will be started on low-dose Lasix. Should follow electrolytes as outpatient constipation. Imaging showed severe constipation. Patient did report bowel movement overnight. Will discharge with daily lactulose. anemia. heme negative. no signs of overt bleeding. likely related to anemia of chronic disease. follow CBC as outpatient. Patient was continued on all other baseline medications. Patient should call to schedule follow appointment with PCP. Final diagnosis: possible portal vein thrombosis. <ZACH Thrasher - Last Filed: 03/24/21 10:04> Time Spent with Patient Time attestation: Total time spent providing and/or coordinating discharge services: <ZACH Thrasher Last Filed: 03/24/21 10:04> Discharge coordination time: Greater than 30 minutes <ZACH Thrasher Last Filed: 03/24/21 10:04> Quality: Stroke Does the patient have a stroke diagnosis?: No <ZACH Thrasher Last Filed: 03/24/21 10:04> Physical Exam Vital Signs: Vital Signs: Last Vital Signs Temp 98 F 03/24/21 06:49 Pulse 79 03/24/21 07:56 Resp 20 03/24/21 06:49 BP 136/77 03/24/21 07:56 Pulse Ox 97 03/24/21 06:49 Body Mass Index 28.0 <ZACH Thrasher Last Filed: 03/24/21 10:04> Const: Nutritional Appearance: well nourished <ZACH Thrasher Last Filed: 03/24/21 10:04> Orientation/consciousness: patient oriented x3 <ZACH Thrasher Last Filed: 03/24/21 10:04> HENMT: Head: Yes normocephalic and Yes atraumatic <ZACH Thrasher - Last Filed: 03/24/21 10:04> Eyes: Sclerae: sclerae normal <ZACH Thrasher - Last Filed: 03/24/21 10:04> Resp: Effort & Inspection: normal respiratory effort and no respiratory distress <ZACH Thrasher - Last Filed: 03/24/21 10:04> Auscultation: clear to auscultation bilaterally <ZACH Thrasher - Last Filed: 03/24/21 10:04> Cardio: Rate: regular rate <ZACH Thrasher - Last Filed: 03/24/21 10:04> Rhythm: regular rhythm <ZACH Thrasher - Last Filed: 03/24/21 10:04> GI: Palpation (GI): Soft to palpation and nontender <ZACH Thrasher - Last Filed: 03/24/21 10:04> Neuro: General: patient oriented x3 <ZACH Thrasher - Last Filed: 03/24/21 10:04> Cranial nerves: Yes CN's II-XII intact bilaterally and Yes Bilaterally intact EOM present <ZACH Thrasher - Last Filed: 03/24/21 10:04> Extrem: Other: b/l leg edema <ZACH Thrasher - Last Filed: 03/24/21 10:04> DS: Data Data Completed and Pending Labs on day of discharge: Laboratory Results - last 24 hr 03/23/21 03/23/21 03/23/21 11:24 11:24 11:24 WBC 7.1 RBC 3.27 L D Hgb 10.5 L D Hct 31.8 L D MCV 97.2 MCH 32.1 MCHC 33.0 RDW 17.0 H Plt Count 97 L D MPV 13.0 H Immature Gran % (Auto) 3.8 H Neut % (Auto) 79.6 H Lymph % (Auto) 11.9 L [place] % (Auto) 3.2 Eos % (Auto) 1.4 Baso % (Auto) 0.1 Lymph # (Auto) 0.8 L [place] # (Auto) 0.2 Eos # (Auto) 0.1 Baso # (Auto) 0.0 Abs Immat Gran (auto) 0.27 H Absolute Neuts (auto) 5.6 Absolute Nucleated RBC 0.000 Nucleated RBC % (auto) 0.0 Smear Tech's Comments Not Reportable PT INR APTT PTT (Heparin Protocol) Hold Blue Top SEE NOTE Sodium 133 L Potassium 4.4 Chloride 103 Carbon Dioxide 29 Anion Gap 5 L BUN 8 L Creatinine 0.82 Estim Creat Clear Calc 119.9 Estimated GFR > 60 POC Glucose Random Glucose 386 H* Lactic Acid Calcium 7.4 L D Magnesium 1.6 Iron 52 TIBC 139 L % Saturation 37 Unsat Iron Binding 87 Ferritin 676 H Total Bilirubin 1.3 H Direct Bilirubin 0.9 H AST 59 H ALT 32 Alkaline Phosphatase 310 H D Troponin I High Sens B-Natriuretic Peptide Total Protein 8.1 H Albumin 1.5 L D Lipase 84 H Urine Color Urine Appearance Urine pH Ur Specific [place] Urine Protein Urine Glucose (UA) Urine Ketones Urine Blood Urine Nitrite Ur Leukocyte Esterase Urine RBC Urine WBC Ur Squamous Epith Cells Urine Bacteria Urine Mucus Stool Occult Blood COVID-19 (NEY) COVID-19 Clin Com 03/23/21 03/23/21 03/23/21 11:24 12:39 14:57 WBC RBC Hgb Hct MCV MCH MCHC RDW Plt Count MPV Immature Gran % (Auto) Neut % (Auto) Lymph % (Auto) [place] % (Auto) Eos % (Auto) Baso % (Auto) Lymph # (Auto) [place] # (Auto) Eos # (Auto) Baso # (Auto) Abs Immat Gran (auto) Absolute Neuts (auto) Absolute Nucleated RBC Nucleated RBC % (auto) Smear Tech's Comments PT INR APTT PTT (Heparin Protocol) Hold Blue Top Sodium Potassium Chloride Carbon Dioxide Anion Gap BUN Creatinine Estim Creat Clear Calc Estimated GFR POC Glucose 171 H Random Glucose Lactic Acid Calcium Magnesium Iron TIBC % Saturation Unsat Iron Binding Ferritin Total Bilirubin Direct Bilirubin AST ALT Alkaline Phosphatase Troponin I High Sens < 3.5 B-Natriuretic Peptide 356 H Total Protein Albumin Lipase Urine Color YELLOW Urine Appearance CLEAR Urine pH 6.5 Ur Specific [place] 1.025 Urine Protein TRACE Urine Glucose (UA) >=1000 H Urine Ketones NEG Urine Blood NEG Urine Nitrite NEG Ur Leukocyte Esterase NEG Urine RBC 0-2 Urine WBC 0 Ur Squamous Epith Cells 1+ Urine Bacteria NONE Urine Mucus 1+ Stool Occult Blood COVID-19 (NEY) COVID-19 Clin Com 03/23/21 03/23/21 03/23/21 15:54 15:54 15:54 WBC RBC Hgb Hct MCV MCH MCHC RDW Plt Count MPV Immature Gran % (Auto) Neut % (Auto) Lymph % (Auto) [place] % (Auto) Eos % (Auto) Baso % (Auto) Lymph # (Auto) [place] # (Auto) Eos # (Auto) Baso # (Auto) Abs Immat Gran (auto) Absolute Neuts (auto) Absolute Nucleated RBC Nucleated RBC % (auto) Smear Tech's Comments PT 17.0 H INR 1.5 H APTT 36.7 PTT (Heparin Protocol) Hold Blue Top Sodium Potassium Chloride Carbon Dioxide Anion Gap BUN Creatinine Estim Creat Clear Calc Estimated GFR POC Glucose Random Glucose Lactic Acid 1.1 Calcium Magnesium Iron TIBC % Saturation Unsat Iron Binding Ferritin Total Bilirubin Direct Bilirubin AST ALT Alkaline Phosphatase Troponin I High Sens B-Natriuretic Peptide Total Protein Albumin Lipase Urine Color Urine Appearance Urine pH Ur Specific [place] Urine Protein Urine Glucose (UA) Urine Ketones Urine Blood Urine Nitrite Ur Leukocyte Esterase Urine RBC Urine WBC Ur Squamous Epith Cells Urine Bacteria Urine Mucus Stool Occult Blood COVID-19 (NEY) Negative COVID-19 [employer] Com See Note 03/23/21 03/23/21 03/23/21 15:55 16:43 21:25 WBC RBC Hgb Hct MCV MCH MCHC RDW Plt Count MPV Immature Gran % (Auto) Neut % (Auto) Lymph % (Auto) [place] % (Auto) Eos % (Auto) Baso % (Auto) Lymph # (Auto) [place] # (Auto) Eos # (Auto) Baso # (Auto) Abs Immat Gran (auto) Absolute Neuts (auto) Absolute Nucleated RBC Nucleated RBC % (auto) Smear Tech's Comments PT INR APTT PTT (Heparin Protocol) Hold Blue Top Sodium Potassium Chloride Carbon Dioxide Anion Gap BUN Creatinine Estim Creat Clear Calc Estimated GFR POC Glucose 120 H 289 H Random Glucose Lactic Acid Calcium Magnesium Iron TIBC % Saturation Unsat Iron Binding Ferritin Total Bilirubin Direct Bilirubin AST ALT Alkaline Phosphatase Troponin I High Sens B-Natriuretic Peptide Total Protein Albumin Lipase Urine Color Urine Appearance Urine pH Ur Specific [place] Urine Protein Urine Glucose (UA) Urine Ketones Urine Blood Urine Nitrite Ur Leukocyte Esterase Urine RBC Urine WBC Ur Squamous Epith Cells Urine Bacteria Urine Mucus Stool Occult Blood NEGATIVE COVID-19 (NEY) COVID-19 Clin Com 03/23/21 03/23/21 03/24/21 21:44 21:44 00:59 WBC 8.3 RBC 3.16 L Hgb 10.1 L Hct 29.8 L MCV 94.3 MCH 32.0 MCHC 33.9 RDW 16.9 H Plt Count 92 L MPV 13.4 H Immature Gran % (Auto) Neut % (Auto) Lymph % (Auto) [place] % (Auto) Eos % (Auto) Baso % (Auto) Lymph # (Auto) [place] # (Auto) Eos # (Auto) Baso # (Auto) Abs Immat Gran (auto) Absolute Neuts (auto) Absolute Nucleated RBC 0.000 Nucleated RBC % (auto) 0.0 Smear Tech's Comments PT 17.2 H INR 1.5 H APTT PTT (Heparin Protocol) 56.9 73.4 D Hold Blue Top Sodium Potassium Chloride Carbon Dioxide Anion Gap BUN Creatinine Estim Creat Clear Calc Estimated GFR POC Glucose Random Glucose Lactic Acid Calcium Magnesium Iron TIBC % Saturation Unsat Iron Binding Ferritin Total Bilirubin Direct Bilirubin AST ALT Alkaline Phosphatase Troponin I High Sens B-Natriuretic Peptide Total Protein Albumin Lipase Urine Color Urine Appearance Urine pH Ur Specific [place] Urine Protein Urine Glucose (UA) Urine Ketones Urine Blood Urine Nitrite Ur Leukocyte Esterase Urine RBC Urine WBC Ur Squamous Epith Cells Urine Bacteria Urine Mucus Stool Occult Blood COVID-19 (NEY) COVID-19 Clin Com 03/24/21 03/24/21 03/24/21 06:50 07:06 07:06 WBC RBC Hgb Hct MCV MCH MCHC RDW Plt Count MPV Immature Gran % (Auto) Neut % (Auto) Lymph % (Auto) [place] % (Auto) Eos % (Auto) Baso % (Auto) Lymph # (Auto) [place] # (Auto) Eos # (Auto) Baso # (Auto) Abs Immat Gran (auto) Absolute Neuts (auto) Absolute Nucleated RBC Nucleated RBC % (auto) Smear Tech's Comments PT INR APTT PTT (Heparin Protocol) Hold Blue Top Sodium 134 L Potassium 4.0 Chloride 104 Carbon Dioxide 25 Anion Gap 9 L BUN 9 Creatinine 0.67 Estim Creat Clear Calc 143.3 Estimated GFR > 60 POC Glucose 217 H Random Glucose 228 H D Lactic Acid Calcium 7.6 L Magnesium Iron TIBC % Saturation Unsat Iron Binding Ferritin Total Bilirubin 1.9 H Direct Bilirubin 1.1 H AST 46 H ALT 27 Alkaline Phosphatase 267 H Troponin I High Sens B-Natriuretic Peptide Total Protein 7.9 Albumin 1.6 L Lipase Urine Color Urine Appearance Urine pH Ur Specific [place] Urine Protein Urine Glucose (UA) Urine Ketones Urine Blood Urine Nitrite Ur Leukocyte Esterase Urine RBC Urine WBC Ur Squamous Epith Cells Urine Bacteria Urine Mucus Stool Occult Blood COVID-19 (NEY) COVID-19 [employer] Com 03/24/21 03/24/21 03/24/21 07:06 07:06 07:06 WBC 7.7 RBC 3.11 L Hgb 10.0 L Hct 29.8 L MCV 95.8 MCH 32.2 MCHC 33.6 RDW 17.2 H Plt Count 87 L MPV 12.6 H Immature Gran % (Auto) Neut % (Auto) Lymph % (Auto) [place] % (Auto) Eos % (Auto) Baso % (Auto) Lymph # (Auto) [place] # (Auto) Eos # (Auto) Baso # (Auto) Abs Immat Gran (auto) Absolute Neuts (auto) Absolute Nucleated RBC 0.000 Nucleated RBC % (auto) 0.0 Smear Tech's Comments PT 17.5 H INR 1.5 H APTT PTT (Heparin Protocol) 75.2 Hold Blue Top Sodium Potassium Chloride Carbon Dioxide Anion Gap BUN Creatinine Estim Creat Clear Calc Estimated GFR POC Glucose Random Glucose Lactic Acid Calcium Magnesium Iron TIBC % Saturation Unsat Iron Binding Ferritin Total Bilirubin Direct Bilirubin AST ALT Alkaline Phosphatase Troponin I High Sens B-Natriuretic Peptide Total Protein Albumin Lipase Urine Color Urine Appearance Urine pH Ur Specific [place] Urine Protein Urine Glucose (UA) Urine Ketones Urine Blood Urine Nitrite Ur Leukocyte Esterase Urine RBC Urine WBC Ur Squamous Epith Cells Urine Bacteria Urine Mucus Stool Occult Blood COVID-19 (NEY) COVID-19 Clin Com <ZACH Thrasher - Last Filed: 03/24/21 10:04> Discharge Plan Discharge Anticipated Discharge Date/Time: 03/24/21 10:47 <ZACH Thrasher - Last Filed: 03/24/21 10:04> Patient Disposition: Home, Self-Care <ZACH Thrasher - Last Filed: 03/24/21 10:04> Discharge Diagnosis: Liver cirrhosis, thrombocytopenia Possible portal vein thrombosis Anemia <ZACH Thrasher - Last Filed: 03/24/21 10:04> Liver cirrhosis, thrombocytopenia Possible portal vein thrombosis Anemia <Jerod Lieberman MD - Last Filed: 03/24/21 10:48> Referrals: Enrique Rasmussen MD [Primary Care Provider] - 1 Week Ariella Lopez MD [Physician] - 1 Week <ZACH Thrasher - Last Filed: 03/24/21 10:04> Discharge Medications: New lactulose 20 gram/30 mL Solution 10 g PO DAILY 30 Days Qty: 450 RF: 0 furosemide [Lasix] 20 mg tablet 20 mg PO DAILY Qty: 30 RF: 0 Continued atorvastatin 40 mg tablet 1 tab PO BEDTIME RF: 0 propranolol 60 mg capsule,extended release 24 hr 1 cap PO DAILY RF: 0 doxepin 100 mg capsule 2 cap PO BEDTIME RF: 0 aripiprazole 10 mg tablet 1 tab PO DAILY RF: 0 Lantus Solostar U-100 Insulin 100 unit/mL (3 mL) insulin pen 12 unit subcut QPM RF: 0 insulin lispro [Humalog KwikPen Insulin] 100 unit/mL insulin pen See Protocol unit subcut TID RF: 0 metformin 500 mg tablet 500 mg PO BID RF: 0 (DME) FreeStyle Lite Strips Strip See Rx Instructions .ROUTE .MEDSUPPLY Qty: 10 RF: 0 (DME) lancets [FreeStyle Lancets] 28 gauge misc See Rx Instructions .ROUTE .MEDSUPPLY Qty: 100 RF: 0 (DME) blood-glucose meter [FreeStyle Lite Meter] Kit See Rx Instructions .ROUTE .MEDSUPPLY Qty: 1 RF: 0 pantoprazole [Protonix] 40 mg tablet,delayed release (DR/EC) 40 mg PO DAILY Qty: 60 RF: 3 <ZACH Thrasher - Last Filed: 03/24/21 10:04> Discharge Orders: Discharge Order (Routine); Ordered 03/24/21 Ordered By: Kourtney Gary <ZACH Thrasher - Last Filed: 03/24/21 10:04> Diet: diabetic diet <ZACH Thrasher - Last Filed: 03/24/21 10:04> diabetic diet <Jerod Lieberman MD - Last Filed: 03/24/21 10:48> Activity on Discharge: As tolerated <ZACH Thrasher - Last Filed: 03/24/21 10:04> As tolerated <Jerod Lieberman MD - Last Filed: 03/24/21 10:48> Stand Alone Forms: Patient Portal Discharge page <ZACH Thrasher - Last Filed: 03/24/21 10:04> Other Ambulatory Orders: Basic Metabolic Panel (Routine) Timeframe: 20210330 Facility: [facility] - Location: Laboratory Ordered By: Kourtney Gary Complete Blood Count no Diff (Routine) Timeframe: 20210330 Facility: [facility] - Location: Laboratory Ordered By: Kourtney Gary <ZACH Thrasher - Last Filed: 03/24/21 10:04> Care Plan Goals: see below <ZACH Thrasher - Last Filed: 03/24/21 10:04> Health Concerns: liver cirrhosis constipation anemia possible portal vein thrombosis <ZACH Thrasher - Last Filed: 03/24/21 10:04> Plan of Treatment: will need close follow up with GI, call office to schedule follow up appointment for next week will need to have repeat imaging of abdomen done to evaluate for Portal vein thrombosis take all medication as prescribed abstain from all drugs and alcohol <ZACH Thrasher - Last Filed: 03/24/21 10:04> Assessment: see discharge summary I saw and examined this patient and participated in treatment plan with ZACH, I agree with managment and disposition and discharge plan as writen in [facility] blackwood and nhan. <ZACH Thrasher - Last Filed: 03/24/21 10:04>
[2021-03-24] MEDS: Lactulose 20 GM/30 ML SOLUTION 10 GM PO (10:20)
--- NOTE | 2021-03-25 11:27 | MHC.CM.PN ---
PT WAS SEEN AT TIME OF DISCHARGE ON 03/24/21. PT REPORTS HE IS HOMELESS AND GOING TO A GROUP HOME AT [place]. PT DENIES HAVING ANY SUPPORTS IN THE COMMUNITY BUT REPORTS HE IS AWARE OF RESOURCES IF HE BECOMES INCLINED TO USE THEM. PT ALSO INDICATED HE DID NOT HAVE TRANSPORTATION AT [place]. CM ATTEMPTED TO ARRANGE A LYFT, HOWEVER THE WINDSURFING INSTRUCTOR NEVER ARRIVED. PT DISCHARGED TO [address] [place] [address] IN [place] [facility] [employer] PROVIDED
[2021-03-26 08:59] LABS: Folate 9.1 ng/mL (> or = 4.0); Vitamin B12 1273 pg/mL (200-900)
== END 2021-03-24 11:45 | disposition home or self-care (01) | DRG 279 ==
LOC: HO.ED 17:30 → HO.IMC 18:50
PROVIDERS: Internal Medicine; Physician Assistant; Admitting Provider Physician Assistant Medical; Emergency Provider Emergency Medicine Emergency Medical Services; PCP Internal Medicine; Visit Provider Internal Medicine
DX: I81 Portal vein thrombosis (principal); R18.8 Other ascites; K74.60 Unspecified cirrhosis of liver; E88.09 Other disorders of plasma-protein metabolism, not elsewhere classified; D63.8 Anemia in other chronic diseases classified elsewhere; E78.5 Hyperlipidemia, unspecified; E11.9 Type 2 diabetes mellitus without complications; I10 Essential (primary) hypertension; K75.81 Nonalcoholic steatohepatitis (NASH); K59.00 Constipation, unspecified; Z20.822 Contact with and (suspected) exposure to COVID-19; Z79.4 Long term (current) use of insulin; Z79.899 Other long term (current) drug therapy
CPT/HCPCS: 36415; 71045; 74177; 76700; 80048; 80076; 81001; 82272; 82607; 82728; 82746; 82947; 83540; 83605; 83690; 83735; 83880; 84484; 85025; 85027; 85610; 85730; 87635; 93005; 99285; J1940; P9047; Q9967

== ENCOUNTER → 2021-03-30 11:29 | Outpatient (BNVA) | payer MEDICAID, SELFPAY | PROVIDERS: PCP Internal Medicine; Referring Provider Internal Medicine; Visit Provider Internal Medicine Gastroenterology | DX: K74.60 Unspecified cirrhosis of liver (principal); R60.0 Localized edema; I81 Portal vein thrombosis | CPT/HCPCS: 90471; 90746; 99212 ==

== ENCOUNTER 2021-06-21 08:16 | Inpatient (IN) | payer MEDICAID, SELFPAY ==
--- NOTE | ~2021-06-21 | CT_ITS ---
EXAMINATION: CT BRAIN AND CHEST. CLINICAL INFORMATION: Altered mental status. Decreased responsiveness. COMPARISON: Chest 03/23/2021. TECHNIQUE: 5 mm thin axial and reformatted 2 mm thin sagittal and coronal images of brain were obtained. DLP [id number]. Chest AP upright portable. FINDINGS: BRAIN: There is no acute intra-axial, extra-axial bleed, masses or midline shift. There is no acute infarction evolution. There is no edema. The lateral ventricles are symmetrical in size and configuration without enlargement. The dougherty to white matter difference is maintained normal. Bone windows reveal no calvarial abnormality. Bilateral paranasal sinuses and mastoid air cells are well-aerated. No scalp soft tissue abnormality. Chest x-ray: The lungs are hypoexpanded without acute pneumonic process. Mild prominence of bronchovascular structures is seen in the parahilar region. Heart size and pulmonary vascularity is normal. No gross bony bony abnormality. CT/CT head/brain wo con IMPRESSION: No acute intracranial process seen. Mild prominence of bronchovascular structures on chest exam, similar to previous study.. No acute consolidation seen. There is no pleural effusion.
[2021-06-21 08:26] VITALS: BP 115/52; BP 138/68; PULSE 77; PULSE 80; RESP 18; TEMP 37.3; O2SAT 100; BMI 31.8
[2021-06-21 08:31] LABS: Glucose, Whole Blood 194 mg/dL (60-115)
--- NOTE | 2021-06-21 08:31 | ECG_ITS ---
Test Reason : ALTER MENTAL Blood Pressure : / mmHG Vent. Rate : 072 BPM Atrial Rate : 072 BPM P-R Int : 138 ms QRS Dur : 110 ms QT Int : 440 ms P-R-T Axes : 046 007 047 degrees QTc Int : 481 ms Normal sinus rhythm Prolonged QT Abnormal ECG When compared with ECG of 23-MAR-2021 11:39, Incomplete right bundle branch block is no longer Present Referred By: Ashley Lam Electronically Signed By:JARETH CASTRO
--- NOTE | 2021-06-21 08:48 | ED.AMS ---
HPI - Altered Mental Status General Chief Complaint: Altered Mental Status Stated Complaint: AMS PER [facility] Time Seen by Provider: 06/21/21 08:30 Source: EMS, RN notes reviewed and old records reviewed Mode of arrival: EMS Limitations: altered mental status History of Present Illness HPI narrative: 50 y/o male Vietnamese-speaking male with a history of schizophrenia, polysubstance abuse, alcohol abuse, liver cirrhosis, portal vein thrombosis, anemia who presents to the ER from [facility] with altered mental status. History is very limited due to lethargy/AMS. Per records he was admitted to [facility] on 06/15 for SI, auditory hallucinations. He is homeless per records. He reportedly overdose 3 times in the last 1 month. MD complaint: altered mental status and decreased responsiveness Onset (ago): hour(s) Timing confirmed by: other (staff at [facility]) Severity: severe Consistency of symptoms: constant Context: drug abuse Related Data Home Medications Medication Instructions Recorded Confirmed insulin lispro 100 unit/mL See Rx Instructions .ROUTE 06/24/20 06/21/21 subcutaneous pen (Humalog KwikPen .COMPLEX ml (U-100) Insulin) metformin 500 mg tablet 500 mg PO BID 06/24/20 06/21/21 atorvastatin 40 mg tablet 1 tab PO BEDTIME 03/23/21 06/21/21 albuterol sulfate 90 mcg/actuation 2 puff INHALATION Q4-6H PRN 06/21/21 06/21/21 aerosol inhaler (ProAir HFA) gabapentin 300 mg capsule 300 mg PO TID 06/21/21 06/21/21 insulin glargine 100 unit/mL (3 30 unit SUBCUT DAILY 06/21/21 06/21/21 mL) subcutaneous pen (Lantus Solostar U-100 Insulin) insulin glargine 100 unit/mL 10 unit SUBCUT QPM 06/21/21 06/21/21 subcutaneous solution lisinopril 20 mg tablet 20 mg PO DAILY 06/21/21 06/21/21 melatonin 3 mg tablet 9 mg PO BEDTIME PRN 06/21/21 06/21/21 pantoprazole 40 mg tablet,delayed 40 mg PO DAILY 06/21/21 06/21/21 release quetiapine 100 mg tablet 100 mg PO BEDTIME 06/21/21 06/21/21 quetiapine 25 mg tablet 25 mg PO QID PRN 06/21/21 06/21/21 Previous Rx's Medication Instructions Recorded furosemide 20 mg tablet (Lasix) 20 mg PO DAILY #30 tab 03/30/21 spironolactone 50 mg tablet 50 mg PO DAILY #60 tab 03/30/21 Allergies Allergy/AdvReac Type Severity Reaction Status Date / Time No Known Allergies Allergy Verified 03/30/21 11:39 [No Known Allergies*] Review of Systems Review of Systems: Yes Unobtainable due to mental status [facility] Past Medical History Medical History Diabetes High cholesterol HTN (hypertension) Surgical History History of colonoscopy History of partial colectomy Hx of endoscopy Family History Family History Mother Heart disease Diabetes Father No problems noted. Social History Social History Household Members: Other Housing: Homeless Do you presently have visiting nurse or other home services: No Alcohol intake: current Patient Tobacco Use Status: Never used Tobacco e-Cigarette/Vaping Use: Never Used Use of substances other than those prescribed or required for medical reasons: No Substance Use Type: Crack/Cocaine and Marijuana Advance Directives: No Advance Directives Information Provided: No service: No Current occupational status: unemployed Physical Exam Vital Signs: Vital Signs: Last Vital Signs Temp 97.6 F 06/21/21 10:16 Pulse 75 06/21/21 10:16 Resp 14 06/21/21 10:16 BP 130/72 06/21/21 10:16 Pulse Ox 99 06/21/21 10:16 Body Mass Index 31.8 Appearance: Sleeping male, protecting his airway Eyes: Pupils equal, round and reactive to light. ENT: Pharynx normal. Neck: Normal inspection. Neck supple. CVS: Normal heart rate and rhythm. Pulses normal. Respiratory: No respiratory distress. Breath sounds normal. Abdomen: Soft and nontender. +BS x4 Skin: Skin warm and dry. Normal skin color. Normal skin turgor. No rashes. Extremities: No lower extremity edema. Neuro: arouses briefly to noxious stimuli, moves all extremities spontaneously, does not follow commands, lethargic Course Course Course Narrative: 50 y/o male with history of schizophrenia, polysubstance abuse, cirrhosis who is coming from [facility] with AMS. He is lethargic but protecting his airway. Arouses to sternal rub, answers y/n questions and then falls back asleep. Will get metabolic workup and CT head. Reevaluation(s) Reevaluation #1: Ammonia 140 - clinical presentation consistent with hepatic encephalopathy. Will place NG for PO lactulose. Will require admission. His med list from [facility] reviewed - he was not prescribed lactulose/rifaxamin there. Reevaluation #2: Attempted NG tube however patient did not tolerate and developed epistaxis from right nare. Nose clamp applied. Platelets 48. He was awake enough to take oral lactulose 30g. Will TT Dr. Traylor for admission. MDM - Altered Mental Status Lab Data Attestation: I reviewed the patient's lab results. Result diagrams: 06/21/21 08:47 06/21/21 08:47 Labs: Lab Results 06/21/21 06/21/21 06/21/21 Range/Units 08:28 08:47 08:47 WBC 4.6 L (4.8-10.8) X10*3/uL RBC 4.08 L D (4.60-5.80) X10*6/uL Hgb 12.7 L D (14.0-18.0) g/dl Hct 37.7 L D (42-52) % MCV 92.4 (80-98) fL MCH 31.1 (27.0-33.0) pg MCHC 33.7 (31.0-36.0) g/dl RDW 13.2 (11.0-16.0) % Plt Count 48 L D (160-400) X10*3/uL MPV Not Reportable Immature Gran % (Auto) 0.4 (0.0-0.4) % Neut % (Auto) 64.3 (45-73) % Lymph % (Auto) 22.8 (20-40) % [place] % (Auto) 9.3 (2-11) % Eos % (Auto) 3.0 (0-4) % Baso % (Auto) 0.2 (0-2) % Lymph # (Auto) 1.1 L (1.2-4.9) X10*3/uL [place] # (Auto) 0.4 (0.1-1.2) X10*3/uL Eos # (Auto) 0.1 (0.0-0.4) X10*3/uL Baso # (Auto) 0.0 (0.0-0.2) X10*3/uL Abs Immat Gran (auto) 0.02 (0.00-0.03) X10*3/uL Absolute Neuts (auto) 3.0 (2.0-8.3) X10*3/uL Absolute Nucleated RBC 0.000 (0.0-0.012) X10*3/uL Nucleated RBC % (auto) 0.0 (0.0-0.2) /100WBC PT (9.9-13.0) SEC INR (0.9-1.1) APTT (24.1-38.0) SEC O2 Saturation ABG pH at Pt Temp ABG pH (Temp Correct) ABG pCO2 at Pt Temp ABG pCO2 (Temp Corrct ABG pO2 at Pt Temp ABG pO2 (Temp Correct ABG HCO3 ABG Base Excess (Actual) VBG pH (7.32-7.43) VBG pCO2 mmHg VBG pO2 mmHg VBG HCO3 (22-26) mmol/L VBG O2 Saturation % VBG Base Excess mmol/L Sodium 136 (135-145) mmol/L Potassium 4.6 (3.3-5.1) mmol/L Chloride 104 (96-108) mmol/L Carbon Dioxide 25 (22-29) mmol/L Anion Gap 12 (12-20) BUN 18 H D (9-16) mg/dL Creatinine 0.85 (0.5-1.4) mg/dL Estim Creat Clear Calc 131.1 Estimated GFR > 60 POC Glucose 194 H (60-115) mg/dL Random Glucose 212 H (60-115) mg/dL Lactic Acid (0.5-2.0) mmol/L Calcium 9.0 D (8.4-10.2) mg/dL Magnesium 1.8 (1.6-2.6) mg/dL Total Bilirubin 1.1 H (0.0-1.0) mg/dL Direct Bilirubin 0.5 (0.0-0.5) mg/dL AST 41 H (5-37) U/L ALT 30 (0-40) U/L Alkaline Phosphatase 133 H D (39-117) U/L Ammonia (13-55) umol/L Total Protein 7.5 (6.5-8.0) g/dL Albumin 2.8 L D (3.5-5.0) g/dL Ethyl Alcohol mg/dL COVID-19 (NEY) (Negative) COVID-19 Clin Com 06/21/21 06/21/21 06/21/21 Range/Units 08:47 08:47 08:47 WBC (4.8-10.8) X10*3/uL RBC (4.60-5.80) X10*6/uL Hgb (14.0-18.0) g/dl Hct (42-52) % MCV (80-98) fL MCH (27.0-33.0) pg MCHC (31.0-36.0) g/dl RDW (11.0-16.0) % Plt Count (160-400) X10*3/uL MPV Immature Gran % (Auto) (0.0-0.4) % Neut % (Auto) (45-73) % Lymph % (Auto) (20-40) % [place] % (Auto) (2-11) % Eos % (Auto) (0-4) % Baso % (Auto) (0-2) % Lymph # (Auto) (1.2-4.9) X10*3/uL [place] # (Auto) (0.1-1.2) X10*3/uL Eos # (Auto) (0.0-0.4) X10*3/uL Baso # (Auto) (0.0-0.2) X10*3/uL Abs Immat Gran (auto) (0.00-0.03) X10*3/uL Absolute Neuts (auto) (2.0-8.3) X10*3/uL Absolute Nucleated RBC (0.0-0.012) X10*3/uL Nucleated RBC % (auto) (0.0-0.2) /100WBC PT 13.3 H D (9.9-13.0) SEC INR 1.2 H (0.9-1.1) APTT 38.2 H (24.1-38.0) SEC O2 Saturation ABG pH at Pt Temp ABG pH (Temp Correct) ABG pCO2 at Pt Temp ABG pCO2 (Temp Corrct ABG pO2 at Pt Temp ABG pO2 (Temp Correct ABG HCO3 ABG Base Excess (Actual) VBG pH (7.32-7.43) VBG pCO2 mmHg VBG pO2 mmHg VBG HCO3 (22-26) mmol/L VBG O2 Saturation % VBG Base Excess mmol/L Sodium (135-145) mmol/L Potassium (3.3-5.1) mmol/L Chloride (96-108) mmol/L Carbon Dioxide (22-29) mmol/L Anion Gap (12-20) BUN (9-16) mg/dL Creatinine (0.5-1.4) mg/dL Estim Creat Clear Calc Estimated GFR POC Glucose (60-115) mg/dL Random Glucose (60-115) mg/dL Lactic Acid 1.3 (0.5-2.0) mmol/L Calcium (8.4-10.2) mg/dL Magnesium (1.6-2.6) mg/dL Total Bilirubin (0.0-1.0) mg/dL Direct Bilirubin (0.0-0.5) mg/dL AST (5-37) U/L ALT (0-40) U/L Alkaline Phosphatase (39-117) U/L Ammonia 140 H (13-55) umol/L Total Protein (6.5-8.0) g/dL Albumin (3.5-5.0) g/dL Ethyl Alcohol mg/dL COVID-19 (NEY) (Negative) COVID-19 Clin Com 06/21/21 06/21/21 06/21/21 Range/Units 08:47 08:47 09:39 WBC (4.8-10.8) X10*3/uL RBC (4.60-5.80) X10*6/uL Hgb (14.0-18.0) g/dl Hct (42-52) % MCV (80-98) fL MCH (27.0-33.0) pg MCHC (31.0-36.0) g/dl RDW (11.0-16.0) % Plt Count (160-400) X10*3/uL MPV Immature Gran % (Auto) (0.0-0.4) % Neut % (Auto) (45-73) % Lymph % (Auto) (20-40) % [place] % (Auto) (2-11) % Eos % (Auto) (0-4) % Baso % (Auto) (0-2) % Lymph # (Auto) (1.2-4.9) X10*3/uL [place] # (Auto) (0.1-1.2) X10*3/uL Eos # (Auto) (0.0-0.4) X10*3/uL Baso # (Auto) (0.0-0.2) X10*3/uL Abs Immat Gran (auto) (0.00-0.03) X10*3/uL Absolute Neuts (auto) (2.0-8.3) X10*3/uL Absolute Nucleated RBC (0.0-0.012) X10*3/uL Nucleated RBC % (auto) (0.0-0.2) /100WBC PT (9.9-13.0) SEC INR (0.9-1.1) APTT (24.1-38.0) SEC O2 Saturation ABG pH at Pt Temp ABG pH (Temp Correct) ABG pCO2 at Pt Temp ABG pCO2 (Temp Corrct ABG pO2 at Pt Temp ABG pO2 (Temp Correct ABG HCO3 ABG Base Excess (Actual) VBG pH 7.42 (7.32-7.43) VBG pCO2 40 mmHg VBG pO2 58 mmHg VBG HCO3 26 (22-26) mmol/L VBG O2 Saturation 83.0 % VBG Base Excess 1.7 mmol/L Sodium (135-145) mmol/L Potassium (3.3-5.1) mmol/L Chloride (96-108) mmol/L Carbon Dioxide (22-29) mmol/L Anion Gap (12-20) BUN (9-16) mg/dL Creatinine (0.5-1.4) mg/dL Estim Creat Clear Calc Estimated GFR POC Glucose (60-115) mg/dL Random Glucose (60-115) mg/dL Lactic Acid (0.5-2.0) mmol/L Calcium (8.4-10.2) mg/dL Magnesium (1.6-2.6) mg/dL Total Bilirubin (0.0-1.0) mg/dL Direct Bilirubin (0.0-0.5) mg/dL AST (5-37) U/L ALT (0-40) U/L Alkaline Phosphatase (39-117) U/L Ammonia (13-55) umol/L Total Protein (6.5-8.0) g/dL Albumin (3.5-5.0) g/dL Ethyl Alcohol < 10 mg/dL COVID-19 (NEY) Negative (Negative) COVID-19 Clin Com See Note 06/21/21 Range/Units 09:55 WBC (4.8-10.8) X10*3/uL RBC (4.60-5.80) X10*6/uL Hgb (14.0-18.0) g/dl Hct (42-52) % MCV (80-98) fL MCH (27.0-33.0) pg MCHC (31.0-36.0) g/dl RDW (11.0-16.0) % Plt Count (160-400) X10*3/uL MPV Immature Gran % (Auto) (0.0-0.4) % Neut % (Auto) (45-73) % Lymph % (Auto) (20-40) % [place] % (Auto) (2-11) % Eos % (Auto) (0-4) % Baso % (Auto) (0-2) % Lymph # (Auto) (1.2-4.9) X10*3/uL [place] # (Auto) (0.1-1.2) X10*3/uL Eos # (Auto) (0.0-0.4) X10*3/uL Baso # (Auto) (0.0-0.2) X10*3/uL Abs Immat Gran (auto) (0.00-0.03) X10*3/uL Absolute Neuts (auto) (2.0-8.3) X10*3/uL Absolute Nucleated RBC (0.0-0.012) X10*3/uL Nucleated RBC % (auto) (0.0-0.2) /100WBC PT (9.9-13.0) SEC INR (0.9-1.1) APTT (24.1-38.0) SEC O2 Saturation TNP ABG pH at Pt Temp TNP ABG pH (Temp Correct) TNP ABG pCO2 at Pt Temp TNP ABG pCO2 (Temp Corrct TNP ABG pO2 at Pt Temp TNP ABG pO2 (Temp Correct TNP ABG HCO3 TNP ABG Base Excess (Actual) TNP VBG pH (7.32-7.43) VBG pCO2 mmHg VBG pO2 mmHg VBG HCO3 (22-26) mmol/L VBG O2 Saturation % VBG Base Excess mmol/L Sodium (135-145) mmol/L Potassium (3.3-5.1) mmol/L Chloride (96-108) mmol/L Carbon Dioxide (22-29) mmol/L Anion Gap (12-20) BUN (9-16) mg/dL Creatinine (0.5-1.4) mg/dL Estim Creat Clear Calc Estimated GFR POC Glucose (60-115) mg/dL Random Glucose (60-115) mg/dL Lactic Acid (0.5-2.0) mmol/L Calcium (8.4-10.2) mg/dL Magnesium (1.6-2.6) mg/dL Total Bilirubin (0.0-1.0) mg/dL Direct Bilirubin (0.0-0.5) mg/dL AST (5-37) U/L ALT (0-40) U/L Alkaline Phosphatase (39-117) U/L Ammonia (13-55) umol/L Total Protein (6.5-8.0) g/dL Albumin (3.5-5.0) g/dL Ethyl Alcohol mg/dL COVID-19 (NEY) (Negative) COVID-19 Clin Com ECG Data ECG #1: ECG interpretation date: 06/21/21 Interpretation: normal sinus rhythm, HR 72 bpm, prolonged QTc 480, no ST segment elevations Critical Care Time Critical Care Time Critical Care Time: Yes Total Critical Care Time: 35 Attestation: I have personally provided critical care time exclusive of time spent on separately billable procedures. Time includes review of lab data, radiology results, discussion with consultants, and monitoring for potential decompensation. Intervention performed as documented. Discharge Plan Discharge Clinical Impression: Acute hepatic encephalopathy Patient Disposition: Admitted As Inpatient
[2021-06-21 08:54] LABS: MANUAL DIFF FLAG NO
[2021-06-21 09:04] LABS: Ammonia 140 umol/L (13-55); INTERNATIONAL NORM RATIO 1.2 (0.9-1.1); Prothrombin Time 13.3 SEC (9.9-13.0)
[2021-06-21 09:05] LABS: Basophils Percent Auto 0.2 % (0-2); Eosinophils Absolute Auto 0.1 X10*3/uL (0.0-0.4); Hematocrit 37.7 % (42-52); Hemoglobin 12.7 g/dl (14.0-18.0); Imm Gran Abs Auto 0.02 X10*3/uL (0.00-0.03); Imm Gran Pct Auto 0.4 % (0.0-0.4); Lymphocytes Absolute Auto 1.1 X10*3/uL (1.2-4.9); Lymphocytes Percent Auto 22.8 % (20-40); Mean Corpuscular HGB Conc 33.7 g/dl (31.0-36.0); Mean Corpuscular Hemoglobin 31.1 pg (27.0-33.0); Mean Corpuscular Volume 92.4 fL (80-98); Monocytes Absolute Auto 0.4 X10*3/uL (0.1-1.2); Monocytes Percent Auto 9.3 % (2-11); Neutrophils Percent Auto 64.3 % (45-73); Red Blood Count 4.08 X10*6/uL (4.60-5.80); Red Cell Distribution Width 13.2 % (11.0-16.0); White Blood Count 4.6 X10*3/uL (4.8-10.8)
[2021-06-21 09:07] LABS: Partial Thromboplastin Time 38.2 SEC (24.1-38.0)
[2021-06-21 09:08] LABS: Lactic Acid 1.3 mmol/L (0.5-2.0)
[2021-06-21 09:11] LABS: Ethanol < 10 mg/dL
[2021-06-21 09:13] LABS: Alanine Aminotransferase 30 U/L (0-40); Albumin Level 2.8 g/dL (3.5-5.0); Alkaline Phosphatase 133 U/L (39-117); Anion Gap 12 (12-20); Aspartate Amino Transferase 41 U/L (5-37); Bilirubin Direct 0.5 mg/dL (0.0-0.5); Bilirubin Total 1.1 mg/dL (0.0-1.0); Blood Urea Nitrogen 18 mg/dL (9-16); Carbon Dioxide 25 mmol/L (22-29); Chloride 104 mmol/L (96-108); Creatinine Clr Calc Pharmacy 131.1; Estimated Glomerular Filt Rate > 60; Glucose Random 212 mg/dL (60-115); Magnesium 1.8 mg/dL (1.6-2.6); Potassium 4.6 mmol/L (3.3-5.1); Sodium 136 mmol/L (135-145); Total Protein 7.5 g/dL (6.5-8.0)
[2021-06-21 09:16] LABS: COVID-19 Test Negative (Negative); IDNOW Serial# 9DD0AD1C
[2021-06-21 09:51] LABS: Platelet Count 48 X10*3/uL (160-400)
[2021-06-21 10:00] LABS: VBG Base Excess 1.7 mmol/L; VBG HCO3 26 mmol/L (22-26); VBG pCO2 40 mmHg; VBG pH 7.42 (7.32-7.43); VBG pO2 58 mmHg
[2021-06-21] MEDS: Lactulose 20 GM/30 ML SOLUTION 30 GM PO ×3 (10:10→21:00)
--- NOTE | 2021-06-21 10:15 | PC.NURSE ---
patient able to wake up enough to tolerate drinking lactulose. responding to ye or no questions, converses with staff but mostly sol[place] islander speaking.
[2021-06-21 10:16] VITALS: BP 130/72; PULSE 75; RESP 14; TEMP 36.4; O2SAT 99
[2021-06-21 10:17] LABS: Venous Blood Gas Refer to POC result
--- NOTE | 2021-06-21 14:15 | PM.IMHP ---
History of Present Illness Date of Service: 06/21/21 Chief Complaint: confusion 50-year-old gentleman with past medical history significant for liver cirrhosis due to ROSA, history of esophageal varices, history of hypertension that is controlled, hyperlipidemia,insulin diabetes mellitus which is reasonably well controlled., also with history substance abuse including cocaine use. He has been admitted to a Psych unit [facility] since the with with SI, halucination. He was brought in by because of confusion and noted to have elevated ammonia level consistent with hepatic encephalopathy. He was confused and wasn't able to offer any meaningful history but following Lactulose he's more awake and tells me he is at [place], aware of date and generally cooperative. He tells me he is not suicidal Review of Systems Review of Systems: no fever confusion denies SI Yes all other systems are reviewed and are negative [facility] Medical History (Updated 06/21/21 @ 14:18 by Jerod Lieberman MD) Cirrhosis Diabetes High cholesterol HTN (hypertension) ROSA (nonalcoholic steatohepatitis) Portal vein thrombosis Family History Mother Heart disease Diabetes Father No problems noted. Pertinent family history: . Surgical History History of colonoscopy History of partial colectomy Hx of endoscopy Social History Household Members: Other Housing: Homeless Do you presently have visiting nurse or other home services: No Alcohol intake: current Patient Tobacco Use Status: Never used Tobacco e-Cigarette/Vaping Use: Never Used Use of substances other than those prescribed or required for medical reasons: No Substance Use Type: Crack/Cocaine and Marijuana Advance Directives: No Advance Directives Information Provided: No service: No Current occupational status: unemployed Meds Allergies Allergy/AdvReac Type Severity Reaction Status Date / Time No Known Allergies Allergy Verified 03/30/21 11:39 [No Known Allergies*] Active Medications: Current Medications Lactulose (Lactulose 20 Gm/30 Ml Solution) 30 gm PO TID [facility] Last Admin: 06/21/21 10:10 Dose: 30 gm Documented by: Pharmacy Consult (Consult Rx Perform Med Rec) 1 each MISCELLANE ONCE PRN PRN Reason: Consult order Home Medications Medication Instructions Recorded Confirmed Last Taken Type insulin lispro 100 unit/mL See Rx Instructions .ROUTE 06/24/20 06/21/21 Unknown History subcutaneous pen (Humalog KwikPen .COMPLEX ml (U-100) Insulin) metformin 500 mg tablet 500 mg PO BID 06/24/20 06/21/21 Unknown History atorvastatin 40 mg tablet 1 tab PO BEDTIME 03/23/21 06/21/21 Unknown History albuterol sulfate 90 mcg/actuation 2 puff INHALATION Q4-6H PRN 06/21/21 06/21/21 Unknown History aerosol inhaler (ProAir HFA) gabapentin 300 mg capsule 300 mg PO TID 06/21/21 06/21/21 Unknown History insulin glargine 100 unit/mL (3 30 unit SUBCUT DAILY 06/21/21 06/21/21 Unknown History mL) subcutaneous pen (Lantus Solostar U-100 Insulin) insulin glargine 100 unit/mL 10 unit SUBCUT QPM 06/21/21 06/21/21 Unknown History subcutaneous solution lisinopril 20 mg tablet 20 mg PO DAILY 06/21/21 06/21/21 Unknown History melatonin 3 mg tablet 9 mg PO BEDTIME PRN 06/21/21 06/21/21 Unknown History pantoprazole 40 mg tablet,delayed 40 mg PO DAILY 06/21/21 06/21/21 Unknown History release quetiapine 100 mg tablet 100 mg PO BEDTIME 06/21/21 06/21/21 Unknown History quetiapine 25 mg tablet 25 mg PO QID PRN 06/21/21 06/21/21 Unknown History Physical Exam Vital Signs and Narrative: Vital Signs: Last Vital Signs Temp 97.6 F 06/21/21 10:16 Pulse 75 06/21/21 10:16 Resp 14 06/21/21 10:16 BP 130/72 06/21/21 10:16 Pulse Ox 99 06/21/21 10:16 Body Mass Index 31.8 Constitutional Awake and Alert, No apparent distress HEENT no sclera icteris, normal eye movment Neck Supple, No lymphadenopathy Cardiovascular RRR, No M/R/G, S1 S2, No S3 S4, No pedal edema Respiratory Lungs clear, No respiratory distress Gastrointestinal Non tender, Non-distended Skin No rash Neurological Alert & oriented x3 Psychological Appropriate affect Results Labs CBC and Chem 7: 06/21/21 08:47 06/21/21 08:47 Labs: Laboratory Results - last 24 hr 06/21/21 06/21/21 06/21/21 08:28 08:47 08:47 MCV 92.4 MCH 31.1 MCHC 33.7 RDW 13.2 Plt Count 48 L D MPV Not Reportable Immature Gran % (Auto) 0.4 Neut % (Auto) 64.3 Lymph % (Auto) 22.8 [place] % (Auto) 9.3 Eos % (Auto) 3.0 Baso % (Auto) 0.2 Lymph # (Auto) 1.1 L [place] # (Auto) 0.4 Eos # (Auto) 0.1 Baso # (Auto) 0.0 Abs Immat Gran (auto) 0.02 Absolute Neuts (auto) 3.0 Absolute Nucleated RBC 0.000 Nucleated RBC % (auto) 0.0 PT INR APTT O2 Saturation ABG pH at Pt Temp ABG pH (Temp Correct) ABG pCO2 at Pt Temp ABG pCO2 (Temp Corrct ABG pO2 at Pt Temp ABG pO2 (Temp Correct ABG HCO3 ABG Base Excess (Actual) VBG pH VBG pCO2 VBG pO2 VBG HCO3 VBG O2 Saturation VBG Base Excess Anion Gap 12 Estim Creat Clear Calc 131.1 Estimated GFR > 60 POC Glucose 194 H Random Glucose 212 H Lactic Acid Calcium 9.0 D Magnesium 1.8 Total Bilirubin 1.1 H Direct Bilirubin 0.5 AST 41 H ALT 30 Alkaline Phosphatase 133 H D Ammonia Total Protein 7.5 Albumin 2.8 L D Ethyl Alcohol COVID-19 (NEY) COVID-19 Clin Com 06/21/21 06/21/21 06/21/21 08:47 08:47 08:47 MCV MCH MCHC RDW Plt Count MPV Immature Gran % (Auto) Neut % (Auto) Lymph % (Auto) [place] % (Auto) Eos % (Auto) Baso % (Auto) Lymph # (Auto) [place] # (Auto) Eos # (Auto) Baso # (Auto) Abs Immat Gran (auto) Absolute Neuts (auto) Absolute Nucleated RBC Nucleated RBC % (auto) PT 13.3 H D INR 1.2 H APTT 38.2 H O2 Saturation ABG pH at Pt Temp ABG pH (Temp Correct) ABG pCO2 at Pt Temp ABG pCO2 (Temp Corrct ABG pO2 at Pt Temp ABG pO2 (Temp Correct ABG HCO3 ABG Base Excess (Actual) VBG pH VBG pCO2 VBG pO2 VBG HCO3 VBG O2 Saturation VBG Base Excess Anion Gap Estim Creat Clear Calc Estimated GFR POC Glucose Random Glucose Lactic Acid 1.3 Calcium Magnesium Total Bilirubin Direct Bilirubin AST ALT Alkaline Phosphatase Ammonia 140 H Total Protein Albumin Ethyl Alcohol COVID-19 (NEY) COVID-19 Clin Com 06/21/21 06/21/21 06/21/21 08:47 08:47 09:39 MCV MCH MCHC RDW Plt Count MPV Immature Gran % (Auto) Neut % (Auto) Lymph % (Auto) [place] % (Auto) Eos % (Auto) Baso % (Auto) Lymph # (Auto) [place] # (Auto) Eos # (Auto) Baso # (Auto) Abs Immat Gran (auto) Absolute Neuts (auto) Absolute Nucleated RBC Nucleated RBC % (auto) PT INR APTT O2 Saturation ABG pH at Pt Temp ABG pH (Temp Correct) ABG pCO2 at Pt Temp ABG pCO2 (Temp Corrct ABG pO2 at Pt Temp ABG pO2 (Temp Correct ABG HCO3 ABG Base Excess (Actual) VBG pH 7.42 VBG pCO2 40 VBG pO2 58 VBG HCO3 26 VBG O2 Saturation 83.0 VBG Base Excess 1.7 Anion Gap Estim Creat Clear Calc Estimated GFR POC Glucose Random Glucose Lactic Acid Calcium Magnesium Total Bilirubin Direct Bilirubin AST ALT Alkaline Phosphatase Ammonia Total Protein Albumin Ethyl Alcohol < 10 COVID-19 (NEY) Negative COVID-19 Clin Com See Note 06/21/21 09:55 MCV MCH MCHC RDW Plt Count MPV Immature Gran % (Auto) Neut % (Auto) Lymph % (Auto) [place] % (Auto) Eos % (Auto) Baso % (Auto) Lymph # (Auto) [place] # (Auto) Eos # (Auto) Baso # (Auto) Abs Immat Gran (auto) Absolute Neuts (auto) Absolute Nucleated RBC Nucleated RBC % (auto) PT INR APTT O2 Saturation TNP ABG pH at Pt Temp TNP ABG pH (Temp Correct) TNP ABG pCO2 at Pt Temp TNP ABG pCO2 (Temp Corrct TNP ABG pO2 at Pt Temp TNP ABG pO2 (Temp Correct TNP ABG HCO3 TNP ABG Base Excess (Actual) TNP VBG pH VBG pCO2 VBG pO2 VBG HCO3 VBG O2 Saturation VBG Base Excess Anion Gap Estim Creat Clear Calc Estimated GFR POC Glucose Random Glucose Lactic Acid Calcium Magnesium Total Bilirubin Direct Bilirubin AST ALT Alkaline Phosphatase Ammonia Total Protein Albumin Ethyl Alcohol COVID-19 (NEY) COVID-19 Clin Com Imaging Radiologist's Impressions: Impressions Chest X-Ray 06/21/21 08:31 IMPRESSION: No acute intracranial process seen. Mild prominence of bronchovascular structures on chest exam, similar to previous study.. No acute consolidation seen. There is no pleural effusion. Head CT 06/21/21 08:31 IMPRESSION: No acute intracranial process seen. Mild prominence of bronchovascular structures on chest exam, similar to previous study.. No acute consolidation seen. There is no pleural effusion. Assessment and Plan (1) Acute hepatic encephalopathy: Status: Acute 50 year old male with HTN, diabetes, ROSA/Cirrhosis, substance abuse here with 1/ Hepatic Encephalopathy--Treat with lactulose 2/ Diabetes - continue Metformin and SSI, hold Lantus for now 3/HTN--continue Lisinopril 4/Cirrhosis--medical management with Lasix, Aldactone 5/Schizophrenia--Seroquel, BHN consult 6/Neuropathy--Neurontin Low riskk for DVT d/t low platlets Quality Stroke Does the patient have a stroke diagnosis?: No VTE Prior VTE?: No VTE Risk Level:: Medical - low VTE Device Contraindication: Treatment Not Indicated VTE Drug Contraindication: Treatment Not Tolerated
[2021-06-21 15:49] VITALS: BP 150/81; PULSE 81; RESP 18; TEMP 36.4; O2SAT 100
[2021-06-21] MEDS: Gabapentin 300 MG CAPSULE PO ×2 (15:50→21:01)
[2021-06-21] MEDS: 0.9 % Sodium Chloride Flush 3 ML SYRINGE IVFLUSH ×2 (15:51→23:10)
[2021-06-21 16:31] LABS: Glucose, Whole Blood 275 mg/dL (60-115)
[2021-06-21] MEDS: Insulin Lispro 100 UNIT/ML 3 ML VIAL SUBCUT ×2 (16:55→21:00)
[2021-06-21 18:25] VITALS: BMI 31.8
[2021-06-21 20:24] LABS: Appearance Urine CLEAR; Color Urine YELLOW; Glucose Urine UA NEG (NEG); Leukocyte Esterase Urine NEG (NEG); Nitrite Urine NEG (NEG); Specific Gravity - Urine >= 1.030 (1.005-1.025); UACC Culture Trigger NO; Urine Blood NEG (NEG); Urine Ketones NEG (NEG); Urine Protein 1+ MG/DL (NEG-TRACE)
[2021-06-21 20:33] LABS: Bacteria Urine TRACE /LPF; Mucus Urine TRACE /LPF; RBC Urine 0-2 /HPF (0); Squamous Epithelial Cell Urine 1+ /LPF; WBC Urine 0-2 /HPF (0-4)
[2021-06-21 20:37] LABS: Amphetamine Screen Urine Not Detected (Not Detect); Barbiturates, Urine Not Detected (Not Detect); Benzodiazepines Screen Urine Not Detected (Not Detect); Cannabinoid Screen Urine Not Detected (Not Detect); Cocaine Screen Urine Not Detected (Not Detect); Fentanyl, urine Not Detected (Not Detect); Opiate Screen Urine Not Detected (Not Detect); Phencyclidine Screen Urine Not Detected (Not Detect)
[2021-06-21 20:52] LABS: Glucose, Whole Blood 218 mg/dL (60-115)
[2021-06-21] MEDS: metFORMIN HCl 500 MG TABLET PO (21:01)
[2021-06-21] MEDS: QUEtiapine Fumarate 100 MG TABLET PO (21:01)
[2021-06-21] MEDS: Atorvastatin Calcium 40 MG TABLET PO (21:01)
[2021-06-21 23:46] VITALS: BP 137/67; PULSE 90; RESP 17; TEMP 36.5; O2SAT 97
[2021-06-22] MEDS: Omeprazole 20 MG CAPSULE.DR PO (05:31)
[2021-06-22 07:14] VITALS: BP 145/77; PULSE 75; RESP 15; TEMP 36.7; O2SAT 98
[2021-06-22 07:27] LABS: Glucose, Whole Blood 120 mg/dL (60-115)
[2021-06-22 07:37] LABS: Ammonia 66 umol/L (13-55)
[2021-06-22 08:41] VITALS: BP 145/77; PULSE 75
[2021-06-22] MEDS: lisinopriL 20 MG TABLET PO (08:41)
[2021-06-22] MEDS: metFORMIN HCl 500 MG TABLET PO (08:41)
[2021-06-22] MEDS: Spironolactone 25 MG TABLET 50 MG PO (08:41)
[2021-06-22] MEDS: Gabapentin 300 MG CAPSULE PO ×2 (08:41→14:54)
[2021-06-22] MEDS: Furosemide 20 MG TABLET PO (08:42)
[2021-06-22] MEDS: Lactulose 20 GM/30 ML SOLUTION 30 GM PO ×2 (08:42→14:53)
[2021-06-22] MEDS: 0.9 % Sodium Chloride Flush 3 ML SYRINGE IVFLUSH (08:43)
[2021-06-22] MEDS: Insulin Glargine,Hum.rec.anlog 100 UNIT/ML 10 ML VIAL 30 UNIT SUBCUT (08:44)
--- NOTE | 2021-06-22 10:00 | MHC.CM.PN ---
EMR REVIEWED, PT ADMITTED W/HEPATIC ENCEPHALOPATHY, PT DECLINED STERILE TECH, PT REPORTS HE IS HOMELESS AND WOULD LIKE TO RETURN TO [facility] FOR DETOX, PT REPORTS HE USES HIS AUNT'S ADDRESS FOR MAIL AND SHE IS LISTED NEXT OF KIN. PT REPORTS HE INDEPENDENT W/ALL CARE, DENIES USE OF DME AND NO HOME SERVICES. 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 PT CURRENTLY DECLINING TO COMPLETE A HCP W/CM. RECOVERY SUPPORT NURSE NOTIFIED. CM WILL CONT TO FOLLOW. D/C PLAN: [place] TX PROGRAM, WILL NEED TRANSPORT.
[2021-06-22 11:01] VITALS: BP 153/73; PULSE 79; RESP 16; TEMP 36.6; O2SAT 99
[2021-06-22 11:29] LABS: Glucose, Whole Blood 268 mg/dL (60-115)
[2021-06-22] MEDS: Insulin Lispro 100 UNIT/ML 3 ML VIAL SUBCUT ×2 (12:27→16:30)
--- NOTE | 2021-06-22 13:01 | MHC.RECOVSUP ---
? Reason for consult:Continuity of care o Current location: [facility]- o Identified substance use concern: Heroine/Cocaine - Seeking ATS (detox) - Support ? Intervention: o ATS bed search started/completed/in process o Community resources provided o Harm reduction discussion ? Plan: o Bed search in progress to o Patient awaiting crisis evaluation o Patient to follow up with [facility] after discharge ? Additional information:Pt. seeking to go back to [facility]. Plan is to discharge him and send him back to [facility].
--- NOTE | 2021-06-22 13:03 | P.DS_ITS ---
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 hyperlipidemia,insulin diabetes mellitus which is reasonably well controlled., also with history substance abuse including cocaine use. He has been admitted to a Psych unit [facility] since the for halucination. He was brought in by because of confusion and noted to have elevated ammonia level consistent with hepatic encephalopathy. He was confused and wasn't able to offer any meaningful history but following Lactulose he's more awake and tells me he is at [place], aware of date? and generally cooperative. He tells me he is NOT suicidal. He was admitted for hepatic encephaloapthy as cause of confusion Hospital course: Patient presented with a confusion was noted to be in acute hepatic encephalopathy with elevated ammonia level. He was hospitalized overnight and treated with lactulose and by the following not morning was a completely lucid. Ammonia level has come down from 140 to 66. He will be discharged with lactulose 20 g t.i.d. this may be reduced to twice a day diffuse having significant diarrhea with it. Patient is been reassessed by the [facility] and service for return to the behavior unit. He is medically cleared to be discharged from the hospital. He denies sucidal ideation. Time Spent with Patient Time attestation: Total time spent providing and/or coordinating discharge services: Discharge coordination time: Greater than 30 minutes Quality: Stroke Does the patient have a stroke diagnosis?: No Physical Exam Vital Signs: Vital Signs: Last Vital Signs Temp 97.8 F 06/22/21 11:01 Pulse 79 06/22/21 11:01 Resp 16 06/22/21 11:01 BP 153/73 H 06/22/21 11:01 Pulse Ox 99 06/22/21 11:01 Body Mass Index 31.8 General: AO X 3, no acute distress Resp: CTA bilateral CVS: S1,S2,RRR GI: +BS, NT, no distention Skin: No rash Neuro: motor grossly intact, no asterixis Psych: appropriate affect DS: Data Data Completed and Pending Labs on day of discharge: Laboratory Results - last 24 hr 06/21/21 06/21/21 06/21/21 16:27 20:02 20:10 POC Glucose 275 H 218 H Ammonia Urine Color YELLOW Urine Appearance CLEAR Urine pH 6.0 Ur Specific [place] >= 1.030 H Urine Protein 1+ H Urine Glucose (UA) NEG Urine Ketones NEG Urine Blood NEG Urine Nitrite NEG Ur Leukocyte Esterase NEG Urine RBC 0-2 Urine WBC 0-2 Ur Squamous Epith Cells 1+ Urine Bacteria TRACE Urine Mucus TRACE Urine Opiates Screen Urine Fentanyl Screen Ur Barbiturates Screen Ur Phencyclidine Scrn Ur Amphetamines Screen U Benzodiazepines Scrn Urine Cocaine Screen U Marijuana (THC) Screen 06/21/21 06/22/21 06/22/21 20:10 07:12 07:13 POC Glucose 120 H Ammonia 66 H Urine Color Urine Appearance Urine pH Ur Specific [place] Urine Protein Urine Glucose (UA) Urine Ketones Urine Blood Urine Nitrite Ur Leukocyte Esterase Urine RBC Urine WBC Ur Squamous Epith Cells Urine Bacteria Urine Mucus Urine Opiates Screen Not Detected Urine Fentanyl Screen Not Detected Ur Barbiturates Screen Not Detected Ur Phencyclidine Scrn Not Detected Ur Amphetamines Screen Not Detected U Benzodiazepines Scrn Not Detected Urine Cocaine Screen Not Detected U Marijuana (THC) Screen Not Detected 06/22/21 11:03 POC Glucose 268 H Ammonia Urine Color Urine Appearance Urine pH Ur Specific [place] Urine Protein Urine Glucose (UA) Urine Ketones Urine Blood Urine Nitrite Ur Leukocyte Esterase Urine RBC Urine WBC Ur Squamous Epith Cells Urine Bacteria Urine Mucus Urine Opiates Screen Urine Fentanyl Screen Ur Barbiturates Screen Ur Phencyclidine Scrn Ur Amphetamines Screen U Benzodiazepines Scrn Urine Cocaine Screen U Marijuana (THC) Screen Preliminary micro results at discharge 06/21/21 08:58 Blood Culture - Preliminary Blood - Venous No growth after 24 hours. 06/21/21 08:47 Blood Culture - Preliminary Blood - Venous No growth after 24 hours. Discharge Plan Discharge Anticipated Discharge Date/Time: 06/22/21 12:57 Patient Disposition: Xfer Psychiatric Hosp Referrals: [facility] [Primary Care Provider] - 1 Week Discharge Medications: New lactulose 20 gram/30 mL solution 20 g PO TID Qty: 1500 RF: 0 Continued atorvastatin 40 mg tablet 1 tab PO BEDTIME RF: 0 lisinopril 20 mg tablet 20 mg PO DAILY RF: 0 Lantus Solostar U-100 Insulin 100 unit/mL (3 mL) insulin pen 30 unit subcut DAILY RF: 0 quetiapine 25 mg Tablet 25 mg PO QID PRN (Reason: Anxiety) RF: 0 insulin glargine 100 unit/mL Solution 10 unit SUBCUT QPM RF: 0 melatonin 3 mg Tablet 9 mg PO BEDTIME PRN (Reason: Insomnia) RF: 0 quetiapine 100 mg Tablet 100 mg PO BEDTIME RF: 0 pantoprazole 40 mg Tablet,Delayed Release (Dr/Ec) 40 mg PO DAILY RF: 0 gabapentin 300 mg Capsule 300 mg PO TID RF: 0 albuterol sulfate [ProAir HFA] 90 mcg/actuation Hfa Aerosol Inhaler 2 puff INHALATION Q4-6H PRN (Reason: Wheezing) RF: 0 insulin lispro [Humalog KwikPen Insulin] 100 unit/mL insulin pen See Rx Instructions unit .ROUTE .COMPLEX RF: 0 metformin 500 mg tablet 500 mg PO BID RF: 0 furosemide [Lasix] 20 mg tablet 20 mg PO DAILY Qty: 30 RF: 2 spironolactone 50 mg tablet 50 mg PO DAILY Qty: 60 RF: 1 Discharge Orders: Discharge Order (Routine); Ordered 06/22/21 Ordered By: Jerod Lieberman Diet: advance to usual diet and diabetic diet Activity on Discharge: As tolerated Stand Alone Forms: Patient Portal Discharge page Care Plan Goals: Prevent rehospitalization from hepatic encephalopathy. Health Concerns: Chronic liver disease, cirrhosis, chronic mental illness. Plan of Treatment: Take all medication including lactulose as recommended and follow up with her primary care week You are medically clear to be discharged from the hospital Assessment: See above
--- NOTE | 2021-06-22 13:08 | MHC.CM.PN ---
Addendum entered by Phoebe Cannon RN 06/22/21 15:17: CM SPOKE W/CARE TEAM AND W/[facility] FOUNDRY PROCESS ENGINEER PARRIS WHO REPORTS PT CAN RETURN TO EATS BED AT 6PM, PT HAS SPOKEN W/PARRIS AND COMPLETED COVID SCREEN, CARE TEAM TO ARRANGE TRANSPORTATION. Original Note: PT DISCHARGING TODAY, CARE TEAM WORKING ON SENDING PT BACK TO [facility] FOR FURTHER SA TX, TRANSPORT TBD
--- NOTE | 2021-06-22 13:13 | MHC.CLN ---
NUTRITION DIET CHANGED TO DIABETIC 2000 KCAL DUE TO HX DM.
--- NOTE | 2021-06-22 15:24 | MHC.CARE ---
Plan for Pt to go to [facility] for 6pm for EATS admit.
[2021-06-22 15:52] VITALS: BP 153/77; PULSE 87; RESP 18; TEMP 37.2; O2SAT 98
[2021-06-22 16:21] LABS: Glucose, Whole Blood 187 mg/dL (60-115)
== END 2021-06-22 16:51 | DRG 279 ==
LOC: HO.ED 11:03 → HO.EDOVER 14:25 → HO.S3 14:33
PROVIDERS: Physician Assistant; Admitting Provider Internal Medicine; Emergency Provider Emergency Medicine Emergency Medical Services; Visit Provider Internal Medicine
DX: K72.00 Acute and subacute hepatic failure without coma (principal); E11.42 Type 2 diabetes mellitus with diabetic polyneuropathy; K74.60 Unspecified cirrhosis of liver; Z20.822 Contact with and (suspected) exposure to COVID-19; K75.81 Nonalcoholic steatohepatitis (NASH); F20.9 Schizophrenia, unspecified; Z79.4 Long term (current) use of insulin; Z79.899 Other long term (current) drug therapy
CPT/HCPCS: 36415; 70450; 71045; 80048; 80076; 80307; 81001; 82077; 82140; 82803; 82947; 83605; 83735; 85025; 85610; 85730; 87040; 87635; 93005; 99285